=== PATIENT | female | born 1995 | race Caucasian/White ===

== ENCOUNTER 2019-05-18 12:15 | Emergency (ER) | payer BC, MEDICAID, SELFPAY ==
[2019-05-18 12:28] VITALS: BP 120/73; PULSE 76; RESP 18; TEMP 36.6; O2SAT 98; BMI 32.3
--- NOTE | 2019-05-18 13:03 | ECG_ITS ---
Measurements Intervals [place] Rate: 70 P: 23 [place]: 152 QRS: 15 QRSD: 94 T: 20 QT: 366 QTc: 396 SINUS RHYTHM No previous ECG available for comparison Electronically Signed On 05-18-2019 22:19:27 TEACHING PASTOR by Real Langley M.D. [email or web address]
[2019-05-18 13:35] LABS: Add Urine Microscopic? NO
[2019-05-18 13:47] LABS: Basophils % 0.3 %; Eosinophils # 0.1 10^3/uL (0.0-0.8); Eosinophils % 0.4 %; Hematocrit 39.5 % (37.0-47.0); Hemoglobin 13.5 g/dL (11.5-15.3); Lymphocytes # 1.4 10^3/uL (0.8-4.8); Lymphocytes % 11.8 %; Mean Corpuscular HGB Conc 34.2 g/dL (30.0-36.0); Mean Corpuscular Hemoglobin 31.5 pg (28.0-34.0); Mean Corpuscular Volume 92.1 fL (81-99); Mean Platelet Volume 8.9 fL (7.4-10.4); Monocytes # 0.5 10^3/uL (0.2-0.9); Monocytes % 4.4 %; Neutrophils # 9.9 10^3/uL (1.8-7.7); Neutrophils % 82.8 %; Nucleated Red Blood Cells % 0 %; Platelet Count 280 10^3/cmm (130-400); Red Blood Count 4.29 10^6/uL (4.1-5.3)
[2019-05-18 13:55] LABS: Bilirubin Urine Neg (NEGATIVE); Blood Urine Neg (Negative); Glucose Urine UA Norm (Normal); Ketones Urine Negative (Negative); Leukocyte Esterase Urine Negative (Negative); Nitrate Urine Negative (Negative); Protein Urine Neg (Negative); Urine Appearance Clear (CLEAR); Urine Color Yellow (Yellow); Urobilinogen Urine 1 mg/dL (Negative)
[2019-05-18 14:09] LABS: Alanine Aminotransferase 79 U/L (0-33); Albumin Level 4.4 g/dL (3.5-5.2); Alkaline Phosphatase 170 IU/L (35-105); Anion Gap 14.6 (5-19); Aspartate Amino Transferase 265 U/L (0-32); Blood Urea Nitrogen 11 mg/dL (6-20); Calcium 9.8 mg/dL (8.5-10.5); Carbon Dioxide 26 mmol/L (22-29); Chloride 103 mmol/L (98-107); Globulin 3.5 g/dL (1.3-4.6); Glucose 112 mg/dL (65-115); Potassium 3.6 mmol/L (3.5-5.1); Sodium 140 mmol/L (136-145); Total Bilirubin 0.6 mg/dL (0.15-1.2); Total Protein 7.9 g/dL (6.6-8.7)
--- NOTE | 2019-05-18 14:11 | W.ED.ABDPA2 ---
HPI - Abdominal Pain General: Chief Complaint: Abdominal Pain Stated Complaint: chest/back pain Time Seen by Provider: 05/18/19 14:11 Source: patient Mode of arrival: ambulatory Limitations: no limitations History of Present Illness: HPI narrative: Patient with presents with episodes of abdominal pain radiating to her back on and off for the last month. Patient denies fever and reports some mild nausea. Patient appears well. Patient appears in no acute distress. Review of Systems General: Reports: 10 or more systems reviewed and unremarkable except in HPI and below GI: Reports: abdominal pain PFSH ED PFSH: Statuses (acute, chronic, etc) shown below reflect problem list status as previously entered and may not be historically accurate Social History Smoking and tobacco status: never smoked Physical Exam Const: COMMON NORMALS: no apparent distress and oriented x3 GENERAL APPEARANCE: cooperative HENMT: COMMON NORMALS: normocephalic, external ears normal, EAC's normal, TM's normal bilaterally and external nose normal HEAD & SCALP: normal to inspection and normocephalic FACE & SINUS: normal facial exam NOSE: external nose normal GENERAL EAR: hearing not grossly impaired EXTERNAL EAR: Yes external ears normal EXTERNAL AUDITORY CANAL: EAC's normal TYMPANIC MEMBRANE: TM's normal bilaterally MOUTH: oral and palatal mucosa normal THROAT: posterior oropharynx normal Eye: COMMON NORMALS: PERRL and EOMs intact bilaterally PUPIL: Yes PERRL Neck/C-Spine: COMMON NORMALS: full ROM and no lymphadenopathy Lymph: LYMPHATIC: no lymphedema noted Chest: COMMONS NORMALS: inspection of chest normal and palpation of chest normal Resp: COMMON NORMALS: normal respiratory effort and clear to auscultation bilaterally AUSCULTATION: clear to auscultation bilaterally Cardio: COMMON NORMALS: regular rate and regular rhythm RATE: regular rate RHYTHM: regular rhythm GI: PALPATION: Yes tender (moderate epigastric) : COMMON NORMALS: Yes no CVA tenderness BLADDER/KIDNEY EXAM: Yes no CVA tenderness Back/Pelvis: COMMON NORMALS: no CVA tenderness and thoracic and lumbar spine normal to inspection Extremity: COMMON NORMALS: normal to inspection GENERAL: No edema Neuro: COMMON NORMALS: oriented x3, moves all extremities and no focal motor deficits Psych: COMMON NORMALS: mental status grossly normal and cooperative Skin: COMMON NORMALS: no rashes or lesions noted GENERAL SKIN EXAM: no rashes or lesions noted Course Vital Signs: Vital signs: Vital Signs Temperature 97.8 F 05/18/19 12:28 Pulse Rate 76 05/18/19 12:28 Respiratory Rate 18 05/18/19 12:28 Blood Pressure 120/73 05/18/19 12:28 Pulse Oximetry 98 05/18/19 12:28 MDM - Abdominal Pain MDM Narrative: Medical decision making narrative: Patient comes in today with complaints of epigastric pain radiating to her back for one month. On exam patient has tenderness to the epigastric region of her abdomen. Bowel sounds are present. Abdomen soft. Vital signs are stable without fever. Differential diagnosis includes gastritis, gastroenteritis, cholecystitis, pancreatitis, cholelithiasis, renal colic. Laboratory values noted some slight elevation in her liver enzymes. And a mild leukocytosis at 12,000. Patient was then and ultrasound with the gallbladder and noted gallstones without acute obstruction, or significant inflammation. Patient was given a dose of and a GI cocktail with some improvement in pain. Patient will be placed on dicyclomine and ondansetron for her pain and discomfort. Encourage patient to drink plenty of fluids and stay pretty much on a clear liquid diet until pain is improved. Then increase pain diet to a light diet without high-fat foods. Patient was recommended to return to the ER for uncontrolled pain or high fever. Case management will be contacted for patient to follow-up with surgery for gallbladder removal. Patient was strongly recommended to return to the ER for worsening signs and symptoms and reported understanding. It was noted that lipase was elevated which might warranted further evaluation with a CT scan but patient did have significant relief after use of . Patient had already been discharged before lab was received. Lab Data: Labs: Lab Results 05/18/19 05/18/19 05/18/19 Range/Units 13:23 13:33 13:33 WBC 12.0 H (4.0-10.0) 10^3/ uL RBC 4.29 (4.1-5.3) 10^6/u L Hgb 13.5 (11.5-15.3) g/dL Hct 39.5 (37.0-47.0) % MCV 92.1 (81-99) fL MCH 31.5 (28.0-34.0) pg MCHC 34.2 (30.0-36.0) g/dL RDW 12.0 L (12.1-15.1) % Plt Count 280 (130-400) 10^3/c mm MPV 8.9 (7.4-10.4) fL Neut % (Auto) 82.8 % Lymph % (Auto) 11.8 % [place] % (Auto) 4.4 % Eos % (Auto) 0.4 % Baso % (Auto) 0.3 % Neut # (Auto) 9.9 H (1.8-7.7) 10^3/u L Lymph # (Auto) 1.4 (0.8-4.8) 10^3/u L [place] # (Auto) 0.5 (0.2-0.9) 10^3/u L Eos # (Auto) 0.1 (0.0-0.8) 10^3/u L Baso # (Auto) 0.0 (0.0-0.1) 10^3/u L Nucleated RBC % (a uto) 0 % Nucleated RBCs # 0.0 /100WBC Sodium 140 (136-145) mmol/L Potassium 3.6 (3.5-5.1) mmol/L Chloride 103 (98-107) mmol/L Carbon Dioxide 26 (22-29) mmol/L Anion Gap 14.6 (5-19) BUN 11 (6-20) mg/dL Creatinine 0.6 (0.5-0.9) mg/dL GFR Calculation 125.0 (90-130) mL/min Glucose 112 (65-115) mg/dL Calcium 9.8 (8.5-10.5) mg/dL Total Bilirubin 0.6 (0.15-1.2) mg/dL AST 265 H (0-32) U/L ALT 79 H (0-33) U/L Alkaline Phosphata se 170 H (35-105) IU/L Total Protein 7.9 (6.6-8.7) g/dL Albumin 4.4 (3.5-5.2) g/dL Globulin 3.5 (1.3-4.6) g/dL Lipase 3604 H (13-60) U/L HCG, Qual (Negative) Urine Color Yellow (Yellow) Urine Appearance Clear (CLEAR) Urine pH 6.0 (5-7) Ur Specific Gravit y 1.020 (1.005-1.030) Urine Protein Neg (Negative) Urine Glucose (UA) Norm (Normal) Urine Ketones Negative (Negative) Urine Occult Blood Neg (Negative) Urine Nitrate Negative (Negative) Urine Bilirubin Neg (NEGATIVE) Urine Urobilinogen 1 H (Negative) mg/dL Ur Leukocyte Adelaide ase Negative (Negative) 05/18/19 Range/Units 13:33 WBC (4.0-10.0) 10^3/ uL RBC (4.1-5.3) 10^6/u L Hgb (11.5-15.3) g/dL Hct (37.0-47.0) % MCV (81-99) fL MCH (28.0-34.0) pg MCHC (30.0-36.0) g/dL RDW (12.1-15.1) % Plt Count (130-400) 10^3/c mm MPV (7.4-10.4) fL Neut % (Auto) % Lymph % (Auto) % [place] % (Auto) % Eos % (Auto) % Baso % (Auto) % Neut # (Auto) (1.8-7.7) 10^3/u L Lymph # (Auto) (0.8-4.8) 10^3/u L [place] # (Auto) (0.2-0.9) 10^3/u L Eos # (Auto) (0.0-0.8) 10^3/u L Baso # (Auto) (0.0-0.1) 10^3/u L Nucleated RBC % (a uto) % Nucleated RBCs # /100WBC Sodium (136-145) mmol/L Potassium (3.5-5.1) mmol/L Chloride (98-107) mmol/L Carbon Dioxide (22-29) mmol/L Anion Gap (5-19) BUN (6-20) mg/dL Creatinine (0.5-0.9) mg/dL GFR Calculation (90-130) mL/min Glucose (65-115) mg/dL Calcium (8.5-10.5) mg/dL Total Bilirubin (0.15-1.2) mg/dL AST (0-32) U/L ALT (0-33) U/L Alkaline Phosphata se (35-105) IU/L Total Protein (6.6-8.7) g/dL Albumin (3.5-5.2) g/dL Globulin (1.3-4.6) g/dL Lipase (13-60) U/L HCG, Qual Negative (Negative) Urine Color (Yellow) Urine Appearance (CLEAR) Urine pH (5-7) Ur Specific Gravit y (1.005-1.030) Urine Protein (Negative) Urine Glucose (UA) (Normal) Urine Ketones (Negative) Urine Occult Blood (Negative) Urine Nitrate (Negative) Urine Bilirubin (NEGATIVE) Urine Urobilinogen (Negative) mg/dL Ur Leukocyte [place] ase (Negative) Discharge Plan Discharge Patient Disposition: Home, Self-Care Clinical Impression: Cholelithiases Qualifiers: Cholelithiasis location: gallbladder Cholecystitis presence: with cholecystitis Cholecystitis acuity: acute Biliary obstruction: without biliary obstruction Qualified Code(s): K80.00 - Calculus of gallbladder with acute cholecystitis without obstruction Condition: Stable Prescriptions: New dicyclomine 20 mg tablet 20 mg PO TID PRN (Reason: abdominal pain) Qty: 30 RF: 0 ondansetron HCl 4 mg tablet 4 mg PO Q8H PRN (Reason: nausea and vomiting) Qty: 10 RF: 0 Discharge Orders: Discharge Order (Routine); Ordered 05/18/19 Ordered By: Manolo Parr Referrals: George Abarca MD [Family Provider] - Discharge Diet: Low Fat Discharge Activity: Resume usual activity Patient Instructions: Cholelithiasis, Biliary Colic (ED) Activity Restrictions/Additional Instructions: Home and rest Drink plenty of fluids Start with a clear liquid diet until pain improves Then increase to a light diet, avoid foods high in fat as this will stimulate gallbladder causing increase pain and discomfort Use medications as directed Follow-up with surgeon to discuss treatment and removal of gallbladder Return to ER for uncontrolled pain or high fever Discharge Date/Time: 05/18/19 15:34 Coding Level of Care Code ED Irrigation Service Technician for Chg Fwd Exam Problem Focused
--- NOTE | 2019-05-18 14:19 | US_ITS ---
WS: [id number] Gallbladder ultrasound, 05/18/2019 Clinical Data: elevated liver enzymes, epigastric abd pain, back pain Comparison: None. Findings: The gallbladder shows several gallstones. The wall measures 3.4 mm with no pericholecystic fluid. The common bile duct is 2.9 mm and there are no intrahepatic ductal abnormalities. Liver shows no cysts, masses or dilated intrahepatic ducts. The pancreas is not obscured by overlying bowel gas and no cyst, pseudocyst, or evidence of pancreati tis is noted. Right kidney measures 4.88 x 5.90 x 11.0 cm and no cyst, masses or hydronephrosis can be seen. The aorta and inferior vena cava show no vascular abnormalities. US/US gall bladder [id number] Impression: 1. Cholelithiasis. 2. Dilated gallbladder wall which can be seen with acute and/or chronic cholecy stitis.
[2019-05-18 14:26] LABS: HCG, Serum Qual Negative (Negative)
[2019-05-18 15:26] LABS: Lipase 3604 U/L (13-60)
[2019-05-18 15:33] VITALS: BP 118/65; PULSE 72; RESP 18; O2SAT 98
--- NOTE | 2019-05-21 14:23 | DCPLANNER ---
renewable energy project manager had message to schedule a follow up appointment for patient with [facility]. renewable energy project manager called [facility], spoke with Ebony, a follow up appointment is scheduled for Wednesday, May 22, 2019 at 2:[address] Boothe. Patient is aware of appointment.
--- NOTE | 2019-06-01 15:39 | DCPLANNER ---
Patient did attend appointment scheduled for 05.22.19 with [facility].
== END 2019-05-18 15:34 | disposition home or self-care (01) ==
PROVIDERS: Emergency Provider Nurse Practitioner Family; Family Provider Family Medicine
DX: K80.00 Calculus of gallbladder with acute cholecystitis without obstruction (principal)
CPT/HCPCS: 36415; 76705; 80053; 81003; 83690; 84703; 85025; 93005; 99283

== ENCOUNTER 2019-07-10 11:44 | Emergency (ER) | payer BC, MEDICAID, SELFPAY ==
[2019-07-10 11:51] VITALS: BP 108/64; PULSE 80; RESP 17; TEMP 36.8; O2SAT 98; BMI 34.9
--- NOTE | 2019-07-10 11:57 | US_ITS ---
WS: [id number] RIGHT UPPER QUADRANT ULTRASOUND HISTORY: abd pain COMPARISON: 05/18/2019 Liver: 11.3 cm in length. Normal size and echogenicity with no intrahepatic dilatation. No mass. Gallbladder: Normally distended gallbladder with cholelithiasis. No gallbladder wall thickening. No p ericholecystic fluid. CBD: 0.6 cm Pancreas: Normal size and echogenicity. Right kidney: 10.3 cm in length. Normal echogenicity with no mass or hydronephrosis. Aorta and IVC: Unremarkable. No ascites. US/US gall bladder [id number] IMPRESSION: 1. Cholelithiasis without evidence for acute cholecystitis. 2. Common bile duct is top normal size.
--- NOTE | 2019-07-10 11:58 | W.ED.ABDPA2 ---
HPI - Abdominal Pain General: Chief Complaint: Abdominal Pain Stated Complaint: ABD PAIN Time Seen by Provider: 07/10/19 11:52 Source: patient Mode of arrival: ambulatory Limitations: no limitations History of Present Illness: HPI narrative: 23-year-old female whose had right upper quadrant pain for last 2 days. She has a history gallstones and was scheduled to have her gallbladder taken out on June 24 but she canceled that she stated her pain has seem to be better she states that her pain is now a 6 out of 10 and is gotten worse. She denies any fevers. She has had some nausea no vomiting. MD elicited complaint: abdominal pain Onset (ago): day(s) Location: RUQ Severity: moderate Radiation: none Migration to: no migration Exacerbating factors: eating Relieving factors: nothing Associated Symptoms: Denies chills, diarrhea, dysuria, fever(s), nausea and vomiting Related Data: Date of Last Menstrual Period: 06/14/19 Review of Systems Const: Denies: fever, chills, body aches or change in appetite Eyes: Denies: blurry vision or eye discomfort ENMT: Denies: throat pain or dental pain Card: Denies: chest pain Resp: Denies: shortness of breath GI: Reports: abdominal pain; Denies: nausea, vomiting or diarrhea : Denies: painful urination Musc: Denies: neck pain or back pain Skin/Breast: Denies: rash Neuro: Denies: headache Psych: Denies: depression Cheo/Lymph: Denies: easy bruising All/Imm: Denies: hives PFSH ED PFSH: Social History Smoking and tobacco status: never smoked Alcohol intake: never Lives independently: Yes Household members: children Marital status: Single Current occupational status: employed History of recent travel: No Female Reproductive History: Date of last menstrual period: 06/14/19 Physical Exam Const: COMMON NORMALS: no apparent distress, oriented x3 and healthy appearing HENMT: COMMON NORMALS: normocephalic and head/scalp atraumatic HEAD & SCALP: normocephalic and atraumatic Eye: COMMON NORMALS: PERRL and EOMs intact bilaterally PUPIL: Yes PERRL Neck/C-Spine: COMMON NORMALS: full ROM and supple Chest: COMMONS NORMALS: inspection of chest normal and palpation of chest normal Resp: COMMON NORMALS: normal respiratory effort, no retractions, no use of accessory muscles and clear to auscultation bilaterally AUSCULTATION: clear to auscultation bilaterally Cardio: COMMON NORMALS: regular rate, regular rhythm and no murmurs RATE: regular rate RHYTHM: regular rhythm GI: COMMON NORMALS: normal to inspection, nondistended, normoactive bowel sounds, soft to palpation and no masses PALPATION: Yes soft and Yes tender Details: RUQ Extremity: COMMON NORMALS: normal to inspection and full ROM Neuro: COMMON NORMALS: oriented x3, moves all extremities and no focal motor deficits Psych: COMMON NORMALS: mental status grossly normal, thought process normal and cooperative THOUGHT PROCESS: normal thought process Skin: COMMON NORMALS: no rashes or lesions noted and no wounds GENERAL SKIN EXAM: no rashes or lesions noted Course Vital Signs: Vital signs: Vital Signs Temperature 98.3 F 07/10/19 11:51 Pulse Rate 80 07/10/19 11:51 Respiratory Rate 18 07/10/19 12:19 Blood Pressure 108/64 07/10/19 11:51 Pulse Oximetry 96 07/10/19 12:19 MDM - Abdominal Pain MDM Narrative: Medical decision making narrative: Patient presents here with abdominal pain likely from cholelithiasis. Patient has no signs of cholecystitis. We will try to get patient surgery rescheduled. Will write her [place] in the meantime. Patient's exam is now benign and her pain is much improved. She is return if worsening. Lab Data: Labs: Lab Results 07/10/19 07/10/19 07/10/19 Range/Units 12:06 12:06 12:23 WBC 9.0 (4.0-10.0) 10^3/ uL RBC 4.14 (4.1-5.3) 10^6/u L Hgb 12.9 (11.5-15.3) g/dL Hct 38.4 (37.0-47.0) % MCV 92.8 (81-99) fL MCH 31.2 (28.0-34.0) pg MCHC 33.6 (30.0-36.0) g/dL RDW 12.0 L (12.1-15.1) % Plt Count 275 (130-400) 10^3/c mm MPV 8.8 (7.4-10.4) fL Neut % (Auto) 73.4 % Lymph % (Auto) 19.1 % [place] % (Auto) 5.1 % Eos % (Auto) 1.7 % Baso % (Auto) 0.4 % Neut # (Auto) 6.6 (1.8-7.7) 10^3/u L Lymph # (Auto) 1.7 (0.8-4.8) 10^3/u L [place] # (Auto) 0.5 (0.2-0.9) 10^3/u L Eos # (Auto) 0.2 (0.0-0.8) 10^3/u L Baso # (Auto) 0.0 (0.0-0.1) 10^3/u L Nucleated RBC % (a uto) 0 % Nucleated RBCs # 0.0 /100WBC Sodium 139 (136-145) mmol/L Potassium 3.7 (3.5-5.1) mmol/L Chloride 102 (98-107) mmol/L Carbon Dioxide 26 (22-29) mmol/L Anion Gap 14.7 (5-19) BUN 9 (6-20) mg/dL Creatinine 0.7 (0.5-0.9) mg/dL GFR Calculation 104.6 (90-130) mL/min Glucose 101 (65-115) mg/dL Calculated Osmolal ity 284 L (285-295) mOsm/k g Calcium 9.3 (8.5-10.5) mg/dL Total Bilirubin 1.0 (0.15-1.2) mg/dL AST 235 H (0-32) U/L ALT 297 H (0-33) U/L Alkaline Phosphata se 315 H (35-105) IU/L Total Protein 7.0 (6.6-8.7) g/dL Albumin 4.2 (3.5-5.2) g/dL Globulin 2.8 (1.3-4.6) g/dL Lipase 57 (13-60) U/L HCG, Qual Negative (Negative) Urine Color (Yellow) Urine Appearance (CLEAR) Urine pH (5-7) Ur Specific Gravit y (1.005-1.030) Urine Protein (Negative) Urine Glucose (UA) (Normal) Urine Ketones (Negative) Urine Blood (Negative) Urine Nitrate (Negative) Urine Bilirubin (NEGATIVE) Urine Urobilinogen (Negative) mg/dL Ur Leukocyte [place] ase (Negative) 07/10/19 Range/Units 12:23 WBC (4.0-10.0) 10^3/ uL RBC (4.1-5.3) 10^6/u L Hgb (11.5-15.3) g/dL Hct (37.0-47.0) % MCV (81-99) fL MCH (28.0-34.0) pg MCHC (30.0-36.0) g/dL RDW (12.1-15.1) % Plt Count (130-400) 10^3/c mm MPV (7.4-10.4) fL Neut % (Auto) % Lymph % (Auto) % [place] % (Auto) % Eos % (Auto) % Baso % (Auto) % Neut # (Auto) (1.8-7.7) 10^3/u L Lymph # (Auto) (0.8-4.8) 10^3/u L [place] # (Auto) (0.2-0.9) 10^3/u L Eos # (Auto) (0.0-0.8) 10^3/u L Baso # (Auto) (0.0-0.1) 10^3/u L Nucleated RBC % (a uto) % Nucleated RBCs # /100WBC Sodium (136-145) mmol/L Potassium (3.5-5.1) mmol/L Chloride (98-107) mmol/L Carbon Dioxide (22-29) mmol/L Anion Gap (5-19) BUN (6-20) mg/dL Creatinine (0.5-0.9) mg/dL GFR Calculation (90-130) mL/min Glucose (65-115) mg/dL Calculated Osmolal ity (285-295) mOsm/k g Calcium (8.5-10.5) mg/dL Total Bilirubin (0.15-1.2) mg/dL AST (0-32) U/L ALT (0-33) U/L Alkaline Phosphata se (35-105) IU/L Total Protein (6.6-8.7) g/dL Albumin (3.5-5.2) g/dL Globulin (1.3-4.6) g/dL Lipase (13-60) U/L HCG, Qual (Negative) Urine Color Yellow (Yellow) Urine Appearance Clear (CLEAR) Urine pH 6 (5-7) Ur Specific Gravit y 1.020 (1.005-1.030) Urine Protein Neg (Negative) Urine Glucose (UA) Norm (Normal) Urine Ketones Negative (Negative) Urine Blood Neg (Negative) Urine Nitrate Negative (Negative) Urine Bilirubin 1+ H (NEGATIVE) Urine Urobilinogen 4 H (Negative) mg/dL Ur Leukocyte Adelaide ase Negative (Negative) Imaging Data ^: US: Radiologist's impression: [facility] [place] [address] Ultrasound Report Signed Patient: Marisol Anderson Unit #: [id number] : [id number] Age/Sex: 23 / F ADM Date: 07/10/19 Loc: ER Room/Bed: Attending Dr: Ordering Provider/Ordering MD: Cee Bone MD Date of Service: 07/10/19 Procedure(s): US gall bladder [id number] Accession Number(s): [id number] Report Number: [id number] WS: [id number] RIGHT UPPER QUADRANT ULTRASOUND HISTORY: abd pain COMPARISON: 05/18/2019 Liver: 11.3 cm in length. Normal size and echogenicity with no intrahepatic dilatation. No mass. Gallbladder: Normally distended gallbladder with cholelithiasis. No gallbladder wall thickening. No pericholecystic fluid. CBD: 0.6 cm Pancreas: Normal size and echogenicity. Right kidney: 10.3 cm in length. Normal echogenicity with no mass or hydronephrosis. Aorta and IVC: Unremarkable. No ascites. US/US gall bladder [id number] IMPRESSION: 1. Cholelithiasis without evidence for acute cholecystitis. 2. Common bile duct is top normal size. Discharge Plan Discharge Patient Disposition: Home, Self-Care Clinical Impression: Abdominal pain Qualifiers: Abdominal location: right upper quadrant Qualified Code(s): R10.11 - Right upper quadrant pain Cholelithiasis Qualifiers: Cholelithiasis location: gallbladder Cholecystitis presence: without cholecystitis Biliary obstruction: without biliary obstruction Qualified Code(s): K80.20 - Calculus of gallbladder without cholecystitis without obstruction Condition: Stable Prescriptions: [place] 5-325 mg tablet 1 tab PO Q6H PRN (Reason: pain) Qty: 14 RF: 0 Zofran 4 mg tablet 4 mg PO QID PRN (Reason: nausea and vomiting) Qty: 14 RF: 0 No Action Prozac 10 mg Capsule 10 mg PO DAILY RF: 0 dicyclomine 20 mg tablet 20 mg PO TID PRN (Reason: abdominal pain) Qty: 30 RF: 0 ondansetron HCl 4 mg tablet 4 mg PO Q8H PRN (Reason: nausea and vomiting) Qty: 10 RF: 0 Discharge Orders: Discharge Order (Routine); Ordered 07/10/19 Ordered By: Cee Bone Referrals: George Abarca MD [Family Provider] - Mario Alberto Boothe MD [Physician] - Discharge Diet: Advance as tolerated Discharge Activity: Resume usual activity Patient Instructions: Abdominal Pain (ED) Coding Level of Care Code ED Rounder And Backer for Chg Fwd Exam Comprehensive
[2019-07-10 12:12] LABS: Basophils % 0.4 %; Eosinophils # 0.2 10^3/uL (0.0-0.8); Eosinophils % 1.7 %; Hematocrit 38.4 % (37.0-47.0); Hemoglobin 12.9 g/dL (11.5-15.3); Lymphocytes # 1.7 10^3/uL (0.8-4.8); Lymphocytes % 19.1 %; Mean Corpuscular HGB Conc 33.6 g/dL (30.0-36.0); Mean Corpuscular Hemoglobin 31.2 pg (28.0-34.0); Mean Corpuscular Volume 92.8 fL (81-99); Mean Platelet Volume 8.8 fL (7.4-10.4); Monocytes # 0.5 10^3/uL (0.2-0.9); Monocytes % 5.1 %; Neutrophils # 6.6 10^3/uL (1.8-7.7); Neutrophils % 73.4 %; Nucleated Red Blood Cells % 0 %; Platelet Count 275 10^3/cmm (130-400); Red Blood Count 4.14 10^6/uL (4.1-5.3)
[2019-07-10] MEDS: ondansetron 2 mg/ML SDV 2 mL 8 MG IVP (12:18)
[2019-07-10 12:19] VITALS: RESP 18; O2SAT 96
[2019-07-10] MEDS: morphine 4 mg/mL SDV 1 mL IVP (12:19)
[2019-07-10 12:28] LABS: Alanine Aminotransferase 297 U/L (0-33); Albumin Level 4.2 g/dL (3.5-5.2); Alkaline Phosphatase 315 IU/L (35-105); Anion Gap 14.7 (5-19); Aspartate Amino Transferase 235 U/L (0-32); Blood Urea Nitrogen 9 mg/dL (6-20); Calcium 9.3 mg/dL (8.5-10.5); Carbon Dioxide 26 mmol/L (22-29); Chloride 102 mmol/L (98-107); Globulin 2.8 g/dL (1.3-4.6); Glomerular Filtration Rate 104.6 mL/min (90-130); Glucose 101 mg/dL (65-115); Lipase 57 U/L (13-60); Osmolality Calculated 284 mOsm/kg (285-295); Potassium 3.7 mmol/L (3.5-5.1); Sodium 139 mmol/L (136-145)
[2019-07-10 12:29] LABS: Add Urine Microscopic? NO
[2019-07-10 12:34] LABS: HCG Qualitative Urine. Negative (Negative)
[2019-07-10 12:42] LABS: Bilirubin Urine 1+ (NEGATIVE); Blood Urine Neg (Negative); Glucose Urine UA Norm (Normal); Ketones Urine Negative (Negative); Leukocyte Esterase Urine Negative (Negative); Nitrate Urine Negative (Negative); Protein Urine Neg (Negative); Urine Appearance Clear (CLEAR); Urine Color Yellow (Yellow); Urobilinogen Urine 4 mg/dL (Negative); pH Urine 6 (5-7)
--- NOTE | 2019-07-10 13:16 | DCPLANNER ---
business center manager was asked to call [facility] to have surgery rescheduled for patient. business center manager spoke with Lashon, gave patients information to clinic, was told that patients information would be printed and given to Dr. Boothe to review. business center manager will call the clinic on 07.11.19 and speak with Lashon about appointment.
[2019-07-10 13:44] VITALS: BP 108/53; PULSE 78; RESP 17; O2SAT 96
--- NOTE | 2019-07-12 13:10 | DCPLANNER ---
Patient's appointment scheduled for 07.12.19 has been cancelled.
== END 2019-07-10 13:46 | disposition home or self-care (01) ==
PROVIDERS: Emergency Provider Emergency Medicine; Family Provider Family Medicine
DX: K80.20 Calculus of gallbladder without cholecystitis without obstruction (principal); R10.11 Right upper quadrant pain
CPT/HCPCS: 12345; 36415; 76705; 80053; 81003; 81025; 83690; 85025; 96374; 96375; 99282; 99283; J2270; J2405

== ENCOUNTER 2019-07-11 02:14 | Emergency (ER) | payer BC, MEDICAID, SELFPAY ==
[2019-07-11 02:18] VITALS: BP 117/76; PULSE 98; RESP 18; O2SAT 97; BMI 28.8
--- NOTE | 2019-07-11 02:22 | US_ITS ---
WS: [id number] Complete ABDOMINAL ULTRASOUND HISTORY: Abdominal Pain COMPARISON: None available. Liver: 11.2 cm in length. Liver is normal size and echogenicity with no mass or intrahepatic dilatati on. Gallbladder: Gallbladder is contracted since the prior study. Cholelithiasis. There is diffuse gallbl adder wall thickening which is new since the prior study obtained on 07/10/2019. No pericholecystic fl uid. Gallbladder wall thickness: 0.7 cm. Pancreas: Normal size and echogenicity. CBD: 0.6 cm. Common bile duct is top normal size. No increase in size since the study on 07/10/2019. V isually there may be a small amount of sludge or very tiny stone in the common bile duct. Right kidney: 9.9 cm x 5.6 cm x 4.5 cm. No mass, cortical thickening or hydronephrosis. Left kidney: 9.7 cm x 4.6 cm x 4.5 cm. No mass, cortical thickening or hydronephrosis. Spleen: Normal size and echogenicity. Abdominal aorta and IVC are within normal limits. No ascites. US/US abdomen complete* [id number] IMPRESSION: 1. Cholelithiasis. 2. Diffuse gallbladder wall thickening is new since this prior study on 020. May be due to contracted gallbladder. Early changes of acute cholecystitis should be considered. 3. Common bile duct top normal size. Tiny amount of sludge or stone in the com mon bile duct should be considered.
--- NOTE | 2019-07-11 02:29 | ED_ITS ---
HPI - Abdominal Pain General: Chief Complaint: Abdominal Pain Stated Complaint: abdominal pain Time Seen by Provider: 07/11/19 02:21 History of Present Illness: HPI narrative: Jeri is a very nice 23-year-old female who comes in complaining of abdominal pain. She states her pain began at 8 AM this morning. She states that in the past she is been told she has gallbladder disease and she needed to have her gallbladder out but as her pain got better she canceled the surgery. The patient was here in the ER earlier today and evaluated and ultimately sent home with [place] for pain. She is tried taking this but it makes her nauseated and throw up. Patient denies any fevers or chills. But she has vomited 5-6 times according to her. She states the pain is worsening and that is why she is return to the ER. Associated Symptoms: Reports nausea and vomiting; Denies chills, coffee ground emesis, constipation, GI cramping, diarrhea, dysuria, fever(s), hematochezia, hematuria, hematemesis, melena and syncope Related Data: Date of Last Menstrual Period: 06/14/19 Review of Systems General: Reports: other (negative unless marked) Const: Denies: fever, chills, body aches, fatigue, malaise or diaphoresis Eyes: Denies: change in vision or blurry vision ENMT: Denies: throat pain, painful swallowing, hoarseness, ear pain, ear discharge, Change in hearing or nasal discharge Card: Denies: chest pain, palpitations, irregular heart rhythm, syncope, pre- syncope, shortness of breath on exertion or shortness of breath when lying down Resp: Denies: shortness of breath, productive cough, non-productive cough, wheezing, coughing up blood or chest congestion GI: Reports: abdominal pain, nausea and vomiting; Denies: vomiting blood, coffee grounds in vomit, diarrhea, constipation, cramping, blood in stool or black tarry stool : Denies: flank pain, painful urination, urinary frequency, urinary urgency, decreased urine ouput, urinary incontinence or blood in urine Musc: Denies: neck pain, back pain, extremity pain, extremity swelling, joint pain, joint swelling, joint warmth or joint stiffness Skin/Breast: Denies: rash, skin tenderness or yellow skin Neuro: Denies: headache, numbness in extremities, weakness in extremities, changes in sensation, lack of coordination, difficulty walking, dizziness, vertigo or confusion Endo: Denies: excessive thirst, tired all the time, cold intolerance, excessive sweating, flushing or hot flashes Cheo/Lymph: Denies: easy bruising, easy bleeding, petechiae or enlarged lymph nodes All/Imm: Denies: hives, throat swelling, tongue swelling, facial swelling or acute wheezing PFSH ED PFSH: Medical History (Updated 07/11/19 @ 05:30 by Kristen Hernandez) Cholelithiasis Surgical History History of adenoidectomy History of tonsillectomy Family History Grandfather Diabetes Denies family history of Anesthesia complication Bleeding disorder Cancer Social History Smoking and tobacco status: never smoked Alcohol intake: never Lives independently: Yes Household members: children Marital status: Single Current occupational status: employed History of recent travel: No Female Reproductive History: Date of last menstrual period: 06/14/19 Physical Exam Const: COMMON NORMALS: no apparent distress, oriented x3, no limitations, healthy appearing and well nourished EXAM LIMITATIONS: no altered mental status GENERAL APPEARANCE: cooperative, well kempt and well developed ORIENTATION/CONSCIOUSNESS: Yes awake HENMT: COMMON NORMALS: normocephalic, head/scalp atraumatic, hearing grossly normal bilaterally, external ears normal, EAC's normal, external nose normal and moist oral mucous membranes HEAD & SCALP: normal to inspection, normocephalic and atraumatic FACE & SINUS: normal facial exam and face symmetric NOSE: external nose normal and nares normal EXTERNAL EAR: Yes external ears normal EXTERNAL AUDITORY CANAL: EAC's normal MOUTH: oral and palatal mucosa normal and tongue normal Eye: COMMON NORMALS: PERRL, EOMs intact bilaterally, conjunctivae normal and no scleral icterus GENERAL EYE: normal appearance of both eyes and normal light reflex CONJUNCTIVA: Yes conjunctivae normal SCLERA: sclerae normal CORNEA: Yes corneas normal PUPIL: Yes PERRL DIRECT OPHTHALMOSCOPY: Yes normal light reflex Neck/C-Spine: COMMON NORMALS: full ROM, no lymphadenopathy, supple, no meningeal signs and no JVD GENERAL: Yes normal visual inspection and Yes trachea midline CERVICAL SPINE: Yes cervical ROM normal Chest: COMMONS NORMALS: inspection of chest normal and palpation of chest normal Resp: COMMON NORMALS: normal respiratory effort, no retractions, no use of accessory muscles and clear to auscultation bilaterally EFFORT & INSPECTION: Yes able to speak in complete sentences AUSCULTATION: clear to auscultation bilaterally Cardio: COMMON NORMALS: no JVD, regular rate, regular rhythm, S1 normal heart sound, S2 normal heart sound, no gallops, no clicks, no murmurs and no rub JUGULAR VENOUS DISTENTION: no JVD RATE: regular rate RHYTHM: regular rhythm HEART SOUNDS: S1 normal and S2 normal GI: COMMON NORMALS: soft to palpation PALPATION: Yes soft, Yes tender Details: RUQ, No guarding and No rigid : COMMON NORMALS: Yes no CVA tenderness BLADDER/KIDNEY EXAM: Yes no CVA tenderness Back/Pelvis: COMMON NORMALS: no CVA tenderness, thoracic and lumbar spine normal to inspection, no thoracic nor lumbar tenderness and thoraco-lumbar ROM normal Extremity: COMMON NORMALS: normal to inspection, full ROM, normal capillary refill, no joint enlargement, no clubbing, cyanosis or edema and no calf tenderness Neuro: COMMON NORMALS: oriented x3, CN's II-XII intact bilaterally, moves all extremities, no focal motor deficits and no sensory deficits noted MENINGEAL SIGNS: Yes no meningeal signs Psych: COMMON NORMALS: mental status grossly normal, thought process normal, cooperative, affect normal, speech normal and activity/motor behavior normal APPEARANCE: Yes well kempt SPEECH: Yes normal speech THOUGHT PROCESS: normal thought process Skin: COMMON NORMALS: no rashes or lesions noted, skin turgor normal, no jaundice, no petechiae and no mottling GENERAL SKIN EXAM: no rashes or lesions noted and turgor normal Course Vital Signs: Vital signs: Vital Signs Pulse Rate 98 07/11/19 02:18 Respiratory Rate 16 07/11/19 04:36 Blood Pressure 117/76 07/11/19 02:18 Pulse Oximetry 99 07/11/19 03:56 MDM - Abdominal Pain MDM Narrative: Medical decision making narrative: The patient has a common bile duct stone and will need an ERCP. The gallbladder bile duct stone was seen on ultrasound. The patient uses to go to [facility] as we do not have the ability to do ERCPs here. I reviewed the case in full with Dr. Mendes, on- call for general surgery. He agrees to accept the patient in transfer. Lab Data: Attestation: I reviewed the patient's lab results. Labs: Lab Results 07/11/19 07/11/19 07/11/19 Range/Units 02:30 02:45 02:45 WBC 8.2 (4.0-10.0) 10^3/ uL RBC 4.62 (4.1-5.3) 10^6/u L Hgb 14.1 (11.5-15.3) g/dL Hct 41.9 (37.0-47.0) % MCV 90.7 (81-99) fL MCH 30.5 (28.0-34.0) pg MCHC 33.7 (30.0-36.0) g/dL RDW 11.9 L (12.1-15.1) % Plt Count 302 (130-400) 10^3/c mm MPV 9.0 (7.4-10.4) fL Neut % (Auto) 80.9 % Lymph % (Auto) 12.0 % [place] % (Auto) 5.9 % Eos % (Auto) 0.5 % Baso % (Auto) 0.5 % Neut # (Auto) 6.6 (1.8-7.7) 10^3/u L Lymph # (Auto) 1.0 (0.8-4.8) 10^3/u L [place] # (Auto) 0.5 (0.2-0.9) 10^3/u L Eos # (Auto) 0.0 (0.0-0.8) 10^3/u L Baso # (Auto) 0.0 (0.0-0.1) 10^3/u L Nucleated RBC % (a uto) 0 % Nucleated RBCs # 0.0 /100WBC PT (10.5-13.3) SECO NDS INR (0.8-1.2) APTT (23.9-36.7) SECO NDS Sodium 139 (136-145) mmol/L Potassium 4.0 (3.5-5.1) mmol/L Chloride 103 (98-107) mmol/L Carbon Dioxide 25 (22-29) mmol/L Anion Gap 15.0 (5-19) BUN 8 (6-20) mg/dL Creatinine 0.7 (0.5-0.9) mg/dL GFR Calculation 104.6 (90-130) mL/min Glucose 120 H (65-115) mg/dL Calculated Osmolal ity 285 (285-295) mOsm/k g Calcium 9.8 (8.5-10.5) mg/dL Total Bilirubin 2.0 H (0.15-1.2) mg/dL AST 1158 H (0-32) U/L ALT 678 H (0-33) U/L Alkaline Phosphata se 407 H (35-105) IU/L Total Protein 7.6 (6.6-8.7) g/dL Albumin 4.6 (3.5-5.2) g/dL Globulin 3.0 (1.3-4.6) g/dL Lipase 7039 H (13-60) U/L HCG, Qual (Negative) Urine Color Yellow (Yellow) Urine Appearance Clear (CLEAR) Urine pH 5 (5-7) Ur Specific Gravit y 1.015 (1.005-1.030) Urine Protein Neg (Negative) Urine Glucose (UA) Norm (Normal) Urine Ketones Negative (Negative) Urine Blood Neg (Negative) Urine Nitrate Negative (Negative) Urine Bilirubin 1+ H (NEGATIVE) Urine Urobilinogen 4 H (Negative) mg/dL Ur Leukocyte Adelaide ase 1+ H (Negative) Urine RBC 0-4 H (0-2) /hpf Urine WBC 15-25 H (0-5) /hpf Ur Squamous Epith Cells 25-40 H (0-5) Ur Transition Epit h Cell 0-4 /hpf Urine Bacteria 3+ H (NONE) Urine Mucus Trace H. pylori IgG Anti body (Negative) Hepatitis A IgM Ab (Nonreactive) Hep Bs Antigen (Nonreactive) Hep B Core IgM Ab (Nonreactive) Hepatitis C Antibo dy (Nonreactive) 07/11/19 07/11/19 07/11/19 Range/Units 02:45 02:45 02:45 WBC (4.0-10.0) 10^3/ uL RBC (4.1-5.3) 10^6/u L Hgb (11.5-15.3) g/dL Hct (37.0-47.0) % MCV (81-99) fL MCH (28.0-34.0) pg MCHC (30.0-36.0) g/dL RDW (12.1-15.1) % Plt Count (130-400) 10^3/c mm MPV (7.4-10.4) fL Neut % (Auto) % Lymph % (Auto) % [place] % (Auto) % Eos % (Auto) % Baso % (Auto) % Neut # (Auto) (1.8-7.7) 10^3/u L Lymph # (Auto) (0.8-4.8) 10^3/u L [place] # (Auto) (0.2-0.9) 10^3/u L Eos # (Auto) (0.0-0.8) 10^3/u L Baso # (Auto) (0.0-0.1) 10^3/u L Nucleated RBC % (a uto) % Nucleated RBCs # /100WBC PT 13.50 H (10.5-13.3) SECO NDS INR 1.00 (0.8-1.2) APTT 28.1 (23.9-36.7) SECO NDS Sodium (136-145) mmol/L Potassium (3.5-5.1) mmol/L Chloride (98-107) mmol/L Carbon Dioxide (22-29) mmol/L Anion Gap (5-19) BUN (6-20) mg/dL Creatinine (0.5-0.9) mg/dL GFR Calculation (90-130) mL/min Glucose (65-115) mg/dL Calculated Osmolal ity (285-295) mOsm/k g Calcium (8.5-10.5) mg/dL Total Bilirubin (0.15-1.2) mg/dL AST (0-32) U/L ALT (0-33) U/L Alkaline Phosphata se (35-105) IU/L Total Protein (6.6-8.7) g/dL Albumin (3.5-5.2) g/dL Globulin (1.3-4.6) g/dL Lipase (13-60) U/L HCG, Qual Negative (Negative) Urine Color (Yellow) Urine Appearance (CLEAR) Urine pH (5-7) Ur Specific Gravit y (1.005-1.030) Urine Protein (Negative) Urine Glucose (UA) (Normal) Urine Ketones (Negative) Urine Blood (Negative) Urine Nitrate (Negative) Urine Bilirubin (NEGATIVE) Urine Urobilinogen (Negative) mg/dL Ur Leukocyte [place] ase (Negative) Urine RBC (0-2) /hpf Urine WBC (0-5) /hpf Ur Squamous Epith Cells (0-5) Ur Transition Epit h Cell /hpf Urine Bacteria (NONE) Urine Mucus H. pylori IgG Anti body Negative (Negative) Hepatitis A IgM Ab (Nonreactive) Hep Bs Antigen (Nonreactive) Hep B Core IgM Ab (Nonreactive) Hepatitis C Antibo dy (Nonreactive) 07/11/19 Range/Units 02:45 WBC (4.0-10.0) 10^3/ uL RBC (4.1-5.3) 10^6/u L Hgb (11.5-15.3) g/dL Hct (37.0-47.0) % MCV (81-99) fL MCH (28.0-34.0) pg MCHC (30.0-36.0) g/dL RDW (12.1-15.1) % Plt Count (130-400) 10^3/c mm MPV (7.4-10.4) fL Neut % (Auto) % Lymph % (Auto) % [place] % (Auto) % Eos % (Auto) % Baso % (Auto) % Neut # (Auto) (1.8-7.7) 10^3/u L Lymph # (Auto) (0.8-4.8) 10^3/u L [place] # (Auto) (0.2-0.9) 10^3/u L Eos # (Auto) (0.0-0.8) 10^3/u L Baso # (Auto) (0.0-0.1) 10^3/u L Nucleated RBC % (a uto) % Nucleated RBCs # /100WBC PT (10.5-13.3) SECO NDS INR (0.8-1.2) APTT (23.9-36.7) SECO NDS Sodium (136-145) mmol/L Potassium (3.5-5.1) mmol/L Chloride (98-107) mmol/L Carbon Dioxide (22-29) mmol/L Anion Gap (5-19) BUN (6-20) mg/dL Creatinine (0.5-0.9) mg/dL GFR Calculation (90-130) mL/min Glucose (65-115) mg/dL Calculated Osmolal ity (285-295) mOsm/k g Calcium (8.5-10.5) mg/dL Total Bilirubin (0.15-1.2) mg/dL AST (0-32) U/L ALT (0-33) U/L Alkaline Phosphata se (35-105) IU/L Total Protein (6.6-8.7) g/dL Albumin (3.5-5.2) g/dL Globulin (1.3-4.6) g/dL Lipase (13-60) U/L HCG, Qual (Negative) Urine Color (Yellow) Urine Appearance (CLEAR) Urine pH (5-7) Ur Specific Gravit y (1.005-1.030) Urine Protein (Negative) Urine Glucose (UA) (Normal) Urine Ketones (Negative) Urine Blood (Negative) Urine Nitrate (Negative) Urine Bilirubin (NEGATIVE) Urine Urobilinogen (Negative) mg/dL Ur Leukocyte Adelaide ase (Negative) Urine RBC (0-2) /hpf Urine WBC (0-5) /hpf Ur Squamous Epith Cells (0-5) Ur Transition Epit h Cell /hpf Urine Bacteria (NONE) Urine Mucus H. pylori IgG Anti body (Negative) Hepatitis A IgM Ab Non-reactive (Nonreactive) Hep Bs Antigen Non-reactive (Nonreactive) Hep B Core IgM Ab Non-reactive (Nonreactive) Hepatitis C Antibo dy Non-reactive (Nonreactive) Imaging Data ^: US: Radiologist's impression: Ultrasound abdomen, technologist interpretation - gallbladder wall thickened at 0.7 cm. Common bile duct enlarged 0.9 cm with common bile duct stone seen. No pericholecystic fluid. Gallstones present within the gallbladder. CT Abd/Pel: Radiologist's impression: [facility] [address] [address] [address] Scan Report Signed Patient: Marisol Anderson Unit #: [id number] : 1995 Age/Sex: 23 / F ADM Date: 07/11/19 Loc: ER Room/Bed: Attending Dr: Ordering Provider/Ordering MD: Kristen Hernandez DO Date of Service: 07/11/19 Procedure(s): CT abdomen pelvis w con* [id number] Accession Number(s): [id number] Report Number: [id number] PROCEDURE INFORMATION: Exam: CT Abdomen And Pelvis With Contrast Exam date and time: 07/11/2019 4:00 AM Age: 23 years old Clinical indication: Abdominal pain; Generalized TECHNIQUE: Imaging protocol: Computed tomography of the abdomen and pelvis with intravenous contrast. Total DLP: 1003.77 mGy-cm Radiation optimization: All CT scans at this facility use at least one of these dose optimization techniques: automated exposure control; mA and/or kV adjustment per patient size (includes targeted exams where dose is matched to clinical indication); or iterative reconstruction. Contrast material: OMNI 300; Contrast volume: 95 ml; Contrast route: 20G; COMPARISON: US gall bladder [id number] 07/10/2019 12:33 PM FINDINGS: Lungs: The lung bases are clear. Liver: Unremarkable. Gallbladder and bile ducts: Small calcified gallstones are visible within the gallbladder. Mild to moderate gallbladder wall thickening/edema. No definite pericholecystic inflammation/fluid. The gallbladder does not appear abnormally distended at this time. No definite biliary tree dilation by CT. Pancreas: Mild presumed inflammatory changes around the pancreas, compatible with acute pancreatitis. Please correlate with clinical and laboratory evaluation. Small amount of peripancreatic/retroperitoneal fluid, most prominent adjacent to the tail of the pancreas and gastric fundus. No definite pseudocyst at this time. No pancreatic duct dilation. The pancreas appears to enhance homogeneously. Spleen: Unremarkable. Adrenals: Unremarkable. Kidneys and ureters: Unremarkable. Stomach and bowel: There are no CT findings to strongly suggest diverticulitis. Appendix: The appendix is visualized and appears normal. Intraperitoneal space: No free air, ascites, or significant bowel distention. Vasculature: No evidence for abdominal aortic aneurysm. Lymph nodes: No retroperitoneal adenopathy. Bladder: Possibly some mild diffuse urinary bladder wall thickening. While nonspecific, this could indicate evidence for cystitis. Please correlate clinically. Reproductive: The right ovary contains a 17 mm dominant follicle versus small collapsing cyst. Significance unlikely due to small size. No significant cul-de-sac fluid. Bones/joints: No significant acute finding. Soft tissues: No significant acute finding. CT/CT abdomen pelvis w con* [id number] IMPRESSION: 1. Cholelithiasis, see additional details above. 2. Findings compatible with acute pancreatitis, see above. 3. Normal appendix. 4. Possible urinary bladder wall thickening, see above. 5. The right ovary contains a 17 mm dominant follicle versus small collapsing cyst. Significance unlikely due to small size. No significant cul-de-sac fluid. 6. Other findings discussed above. Radiation Dose CTDIVOL = (mGy): DLP = 1003.77 (mGy-cm) Dictated By: Shahzad Gaitan MD Signed By: Shahzad Gaitan MD Signed Date/Time: 07/11/19446 DD/ 5 Discharge Plan Discharge Patient Disposition: Xfer Short-Term Hosp Clinical Impression: Acute gallstone pancreatitis, Acute cholecystitis Condition: Stable Referrals: George Abarca MD [Family Provider] - Coding Level of Care Code ED Supervisor Cook Room for Chg Fwd Exam Comprehensive
[2019-07-11] MEDS: sodium chloride 0.9% 1,000 ML 100 ML IV (02:50)
[2019-07-11 02:53] LABS: Basophils % 0.5 %; Eosinophils % 0.5 %; Hematocrit 41.9 % (37.0-47.0); Hemoglobin 14.1 g/dL (11.5-15.3); Mean Corpuscular HGB Conc 33.7 g/dL (30.0-36.0); Mean Corpuscular Hemoglobin 30.5 pg (28.0-34.0); Mean Corpuscular Volume 90.7 fL (81-99); Monocytes # 0.5 10^3/uL (0.2-0.9); Monocytes % 5.9 %; Neutrophils # 6.6 10^3/uL (1.8-7.7); Neutrophils % 80.9 %; Nucleated Red Blood Cells % 0 %; Platelet Count 302 10^3/cmm (130-400); Red Blood Count 4.62 10^6/uL (4.1-5.3); Red Cell Distribution Width 11.9 % (12.1-15.1); White Blood Count 8.2 10^3/uL (4.0-10.0)
[2019-07-11] MEDS: ondansetron 2 mg/ML SDV 2 mL 4 MG IVP ×2 (03:00→05:00)
--- NOTE | 2019-07-11 03:00 | PC.NURSE ---
Pt requesting to hold morphine medication due to possible upset stomach
[2019-07-11 03:10] LABS: Alanine Aminotransferase 678 U/L (0-33); Albumin Level 4.6 g/dL (3.5-5.2); Alkaline Phosphatase 407 IU/L (35-105); Blood Urea Nitrogen 8 mg/dL (6-20); Calcium 9.8 mg/dL (8.5-10.5); Carbon Dioxide 25 mmol/L (22-29); Chloride 103 mmol/L (98-107); Glomerular Filtration Rate 104.6 mL/min (90-130); Glucose 120 mg/dL (65-115); Osmolality Calculated 285 mOsm/kg (285-295); Sodium 139 mmol/L (136-145); Total Protein 7.6 g/dL (6.6-8.7)
--- NOTE | 2019-07-11 03:10 | PC.NURSE ---
pt requesting emesis bucket due to increased nausea. Pain level still 9/10. Pt still wishes to hold on morphine adm
[2019-07-11 03:17] LABS: HCG, Serum Qual Negative (Negative)
[2019-07-11] MEDS: pantoprazole 40 mg SDV 80 MG IVP (03:18)
[2019-07-11 03:40] LABS: Aspartate Amino Transferase 1158 U/L (0-32); H. Pylori IgG Antibody Negative (Negative)
[2019-07-11 03:44] LABS: Lipase 7039 U/L (13-60)
[2019-07-11 03:45] LABS: Bilirubin Urine 1+ (NEGATIVE); Blood Urine Neg (Negative); Glucose Urine UA Norm (Normal); Ketones Urine Negative (Negative); Leukocyte Esterase Urine 1+ (Negative); Nitrate Urine Negative (Negative); Protein Urine Neg (Negative); Specific Gravity, Urine 1.015 (1.005-1.030); Urine Appearance Clear (CLEAR); Urine Color Yellow (Yellow); Urobilinogen Urine 4 mg/dL (Negative); pH Urine 5 (5-7)
[2019-07-11 03:47] LABS: RBC Urine 0-4 /hpf (0-2); Squamous Epithelial Cell Urine 25-40 (0-5)
[2019-07-11 03:48] LABS: Bacteria Urine 3+; Mucus Urine TRACE; Transitional Epi Cells Urine 0-4 /hpf; WBC Urine 15-25 /hpf (0-5)
--- NOTE | 2019-07-11 03:48 | CTR_ITS ---
PROCEDURE INFORMATION: Exam: CT Abdomen And Pelvis With Contrast Exam date and time: 07/11/2019 4:00 AM Age: 23 years old Clinical indication: Abdominal pain; Generalized TECHNIQUE: Imaging protocol: Computed tomography of the abdomen and pelvis with intravenous contrast. Total DLP: 1003.77 mGy-cm Radiation optimization: All CT scans at this facility use at least one of these dose optimization techniques: automated exposure control; mA and/or kV adjustment per patient size (includes targeted exams where dose is matched to clinical indication); or iterative reconstruction. Contrast material: OMNI 300; Contrast volume: 95 ml; Contrast route: 20G; COMPARISON: US gall bladder [id number] 07/10/2019 12:33 PM FINDINGS: Lungs: The lung bases are clear. Liver: Unremarkable. Gallbladder and bile ducts: Small calcified gallstones are visible within the gallbladder. Mild to moderate gallbladder wall thickening/edema. No definite pericholecystic inflammation/fluid. The gallbladder does not appear abnormally distended at this time. No definite biliary tree dilation by CT. Pancreas: Mild presumed inflammatory changes around the pancreas, compatible with acute pancreatitis. Please correlate with clinical and laboratory evaluation. Small amount of peripancreatic/retroperitoneal fluid, most prominent adjacent to the tail of the pancreas and gastric fundus. No definite pseudocyst at this time. No pancreatic duct dilation. The pancreas appears to enhance homogeneously. Spleen: Unremarkable. Adrenals: Unremarkable. Kidneys and ureters: Unremarkable. Stomach and bowel: There are no CT findings to strongly suggest diverticulitis. Appendix: The appendix is visualized and appears normal. Intraperitoneal space: No free air, ascites, or significant bowel distention. Vasculature: No evidence for abdominal aortic aneurysm. Lymph nodes: No retroperitoneal adenopathy. Bladder: Possibly some mild diffuse urinary bladder wall thickening. While nonspecific, this could indicate evidence for cystitis. Please correlate clinically. Reproductive: The right ovary contains a 17 mm dominant follicle versus small collapsing cyst. Significance unlikely due to small size. No significant cul-de-sac fluid. Bones/joints: No significant acute finding. Soft tissues: No significant acute finding. CT/CT abdomen pelvis w con* [id number] IMPRESSION: 1. Cholelithiasis, see additional details above. 2. Findings compatible with acute pancreatitis, see above. 3. Normal appendix. 4. Possible urinary bladder wall thickening, see above. 5. The right ovary contains a 17 mm dominant follicle versus small collapsing cyst. Significance unlikely due to small size. No significant cul-de-sac fluid. 6. Other findings discussed above. Radiation Dose CTDIVOL = (mGy): DLP = 1003.77 (mGy-cm)
[2019-07-11 03:49] LABS: Add Urine Culture? No
[2019-07-11 03:56] VITALS: RESP 18; O2SAT 99
[2019-07-11] MEDS: morphine 4 mg/mL SDV 1 mL IVP (03:56)
[2019-07-11] MEDS: piperacillin-tazobactam 3.375 GM in sodium chloride 0.9% (plus) 50 ML IV (04:05)
[2019-07-11] MEDS: sodium chloride 0.9% 1,000 ML 999 ML IV (04:06)
[2019-07-11 04:07] LABS: Hepatitis A Antibody IgM. Non-Reactive (Nonreactive); Hepatitis B Core IgM Non-Reactive (Nonreactive); Hepatitis B Surface Antigen. Non-Reactive (Nonreactive); Hepatitis C Virus Antibody Non-Reactive (Nonreactive)
[2019-07-11] MEDS: iohexol 300 mg/mL 100 mL Btl IV (04:09)
[2019-07-11 04:18] LABS: Partial Thromboplastin Time 28.1 SECONDS (23.9-36.7)
[2019-07-11 04:36] VITALS: RESP 16
[2019-07-11] MEDS: HYDROmorphone 1 mg/mL INJ 1 mL IVP (04:36)
--- NOTE | 2019-07-11 06:07 | PC.NURSE ---
Report called into [facility], Marylu Colon RN
--- NOTE | 2019-07-11 06:24 | PC.NURSE ---
Pt still having episode of vomiting after movement
[2019-07-11] MEDS: LORazepam 2 mg/mL INJ 1 mL 1 MG IVP (08:04)
[2019-07-11 08:05] VITALS: BP 109/60; PULSE 70; RESP 18; O2SAT 94
--- NOTE | 2019-07-11 13:17 | DCPLANNER ---
manager global communications called [facility], spoke with Lashon, a follow up appointment is scheduled for July at 10:[address] Boothe. Clinic has called and spoken with patient about appointment scheduled.
== END 2019-07-11 08:08 | disposition short-term general hospital (02) ==
PROVIDERS: Emergency Provider Emergency Medicine; Family Provider Family Medicine
DX: K85.10 Biliary acute pancreatitis without necrosis or infection (principal); K81.0 Acute cholecystitis
CPT/HCPCS: 12345; 74177; 76700; 80053; 80074; 81001; 83690; 84703; 85025; 85610; 85730; 86677; 96360; 96361; 96365; 96374; 96375; 99283; 99284; C9113; J1170; J2060; J2270; J2405; J2543; J7030; Q9967

== ENCOUNTER → 2019-10-01 13:00 | Outpatient (BNVA) | payer BC, MEDICAID, SELFPAY | PROVIDERS: Family Provider Family Medicine; Visit Provider Nurse Practitioner Family | DX: Z11.59 Encounter for screening for other viral diseases (principal) | CPT/HCPCS: 87635 ==

== ENCOUNTER → 2019-12-24 13:36 | Outpatient (BNVA) | payer BC, MEDICAID, SELFPAY | PROVIDERS: Family Provider Family Medicine; Visit Provider Nurse Practitioner | DX: B34.9 Viral infection, unspecified; Z86.19 Personal history of other infectious and parasitic diseases | CPT/HCPCS: 87071; 87635; 87880 ==

== ENCOUNTER → 2021-01-09 18:40 | Outpatient (BNVA) | payer BC, MEDICAID, SELFPAY | PROVIDERS: Family Provider Family Medicine; Visit Provider Registered Nurse Neonatal Intensive Care | DX: Z20.822 Contact with and (suspected) exposure to COVID-19 (principal) | CPT/HCPCS: 87635 ==

== ENCOUNTER 2022-02-27 08:46 | Emergency (ER) | payer BC, MEDICAID, SELFPAY ==
[2022-02-27 08:58] VITALS: BP 117/76; PULSE 74; RESP 13; TEMP 36.9; O2SAT 97; BMI 38.3
--- NOTE | 2022-02-27 09:19 | USR_ITS ---
PROCEDURE INFORMATION: Exam: US Nonobstetric Pelvis; Complete Exam date and time: 02/27/2022 10:08 AM Age: 26 years old Clinical indication: Pelvic pain; Additional info: Pelvic pain; Mostly llq and suprapubic, assess ovaries; R/O torsion vs ovarian cyst TECHNIQUE: Imaging protocol: Transabdominal pelvic nonobstetric ultrasound. Complete exam. Real time ultrasound with image documentation. COMPARISON: CT abdomen pelvis w con* [id number] 07/11/2019 3:59 AM FINDINGS: Uterus: The uterus measures 9.0 x 4.3 x 5.0 cm. Normal size, contour and echotexture. No mass. The endometrial echo complex measures 0.7 cm. Right ovary/adnexa: The right ovary measures 2.3 x 2.6 x 1.7 cm. Arterial and venous flow are documented. No mass. Left ovary/adnexa: The left ovary measures 2.5 x 2.9 x 2.0 cm. Arterial and venous flow are documented. No mass. Intraperitoneal space: Moderate volume free fluid in the pelvis. Urinary bladder: Normal as imaged. US/US pelvic complete* [id number] IMPRESSION: Moderate volume free fluid in the pelvis. Otherwise, unremarkable pelvic ultrasound.
--- NOTE | 2022-02-27 09:22 | ED_ITS ---
HPI - Abdominal Pain General: Chief Complaint: Abdominal Pain Stated Complaint: pain in lower left abd Time Seen by Provider: 02/27/22 09:04 Source: patient Mode of arrival: ambulatory Limitations: no limitations History of Present Illness: See nursing assessment. Patient with complaints of onset of rectal/anal pain approximately 30 minutes after she awakened. She states she awakened without any pain. She reports that the pain then radiated to her left lower quadrant and suprapubic area. She states it hurts to walk or rotate her abdomen. She denies any fever vomiting diarrhea or constipation. She states she had normal bowel movement yesterday. She states she had some slight nausea earlier with onset of the pain. Past medical history includes depression and anxiety and takes Prozac for this. She states she is allergic to hydrocodone. Past surgical history includes cholecystectomy in 2020. She denies any other abdominal surgery. She denies tobacco use. She denies any dysuria or vaginal discharge. Associated Symptoms: Reports nausea; Denies chills, constipation, diarrhea, fever(s), hematochezia, melena and vomiting Related Data: Date of Last Menstrual Period: 06/14/19 Review of Systems Const: Denies: fever(s) or chills Eyes: Denies: change in vision ENMT: Denies: throat pain Card: Denies: chest pain or palpitations Resp: Denies: dyspnea or wheezing GI: Reports: abdominal pain, nausea and rectal pain; Denies: vomiting, diarrhea, constipation, rectal swelling, hematochezia or melena : Denies: flank pain, difficulty voiding or vaginal discharge Musc: Denies: neck pain or back pain Skin/Breast: Denies: rash or pruritus Neuro: Denies: headache(s) or numbness in extremities Psych: Denies: anxiety Cheo/Lymph: Denies: enlarged lymph nodes PFSH ED PFSH: Medical History (Updated 02/27/22 @ 11:08 by Trip Seo MD) Cholelithiasis Surgical History History of adenoidectomy History of tonsillectomy Family History Grandfather Diabetes Denies family history of Anesthesia complication Bleeding disorder Cancer Social History Smoking and tobacco status: never smoked Alcohol intake: never Lives independently: Yes Household members: children Marital status: Single Current occupational status: employed History of recent travel: No Female Reproductive History: Date of last menstrual period: 06/14/19 Supplemental [facility] Information: History of cholecystectomy Physical Exam Const: COMMON NORMALS: no acute distress, patient oriented x3, alert and well nourished GENERAL APPEARANCE: cooperative HENMT: COMMON NORMALS: normocephalic and atraumatic HEAD & SCALP: norm ocephalic and atraumatic Eye: COMMON NORMALS: EOMs intact bilaterally Neck/C-Spine: COMMON NORMALS: full ROM, no lymphadenopathy, supple and no JVD Lymph: LYMPHATIC: no lymphadenopathy noted Chest: COMMONS NORMALS: normal inspection of the chest and normal palpation of entire chest wall Resp: COMMON NORMALS: normal respiratory effort, No retractions, No use of accessory muscles and clear to auscultation bilaterally AUSCULTATION: clear to auscultation bilaterally Cardio: COMMON NORMALS: no JVD, regular rate, regular rhythm and Peripheral pulses 2+ throughout RATE: regular rate RHYTHM: regular rhythm PERIPHERAL PULSES: Peripheral pulses 2+ throughout GI: COMMON NORMALS: Soft to palpation PALPATION: Yes Soft to palpation OTHER: Moderate suprapubic and left lower quadrant abdominal pain. : COMMON NORMALS: Yes no CVA tenderness BLADDER/KIDNEY EXAM: Yes no CVA tenderness OTHER: Rectal exam attended with charge nurse. Rectal exam is normal. Anus is normal. No hemorrhoids. Stool soft and guaiac negative. No rectal masses or tenderness. Back/Pelvis: COMMON NORMALS: no CVA tenderness Extremity: COMMON NORMALS: normal to inspection and full ROM Neuro: COMMON NORMALS: patient oriented x3, CN's II-XII intact bilaterally, moves all extremities, no focal motor deficits and no sensory deficits noted SENSORIUM/ORIENTATION: Yes alert Psych: COMMON NORMALS: mental status grossly normal, Normal thought process present, cooperative, normal affect and speech normal SPEECH: Yes normal speech THOUGHT PROCESS: Normal thought process present Skin: COMMON NORMALS: no rashes or lesions noted GENERAL SKIN EXAM: no rashes or lesions noted Course Vital Signs: Vital signs: Vital Signs Temperature 98.4 F 02/27/22 08:58 Pulse Rate 74 02/27/22 08:58 Respiratory Rate 13 02/27/22 08:58 Blood Pressure 117/76 02/27/22 08:58 Pulse Oximetry 97 02/27/22 08:58 Oxygen Delivery Me thod 02/27/22 08:58 MDM - Abdominal Pain Medical Decision Making Lower abdominal pain, possible ovarian torsion, possible ruptured ovarian cyst, possible diverticulitis, possible kidney stone Findings by ultrasound are consistent with ruptured ovarian cyst. I instructed the patient return if she became dizzy or faint. Also instructed her to rest for the next 3 days and not be active. She agreed to return if worse. Lab Data 02/27/22 09:39 02/27/22 09:39 Labs/Radiology: Radiology Impressions Pelvis Ultrasound 02/27/22 09:19 IMPRESSION: Moderate volume free fluid in the pelvis. Otherwise, unremarkable pelvic ultrasound. Laboratory Results WBC 5.1 10^3/uL (4.0-10.0) 02/27/22 09:39 RBC 4.29 10^6/uL (4.1-5.3) 02/27/22 09:39 Hgb 13.0 g/dL (11.5-15.3) 02/27/22 09:39 Hct 37.8 % (37.0-47.0) 02/27/22 09:39 MCV 88.1 fl (81-99) 02/27/22 09:39 MCH 30.3 pg (28.0-34.0) 02/27/22 09:39 MCHC 34.4 g/dL (30.0-36.0) 02/27/22 09:39 RDW 12.3 % (12.1-15.1) 02/27/22 09:39 Plt Count 233 10^3/cmm (130-400) 02/27/22 09:39 MPV 8.8 fL (7.4-10.4) 02/27/22 09:39 Neut % (Auto) 59.1 % 02/27/22 09:39 Lymph % (Auto) 33.4 % 02/27/22 09:39 [place] % (Auto) 4.5 % 02/27/22 09:39 Eos % (Auto) 2.0 % 02/27/22 09:39 Baso % (Auto) 0.8 % 02/27/22 09:39 Neut # (Auto) 2.99 10^3/uL (1.8-7.7) 02/27/22 09:39 Lymph # (Auto) 1.7 10^3/uL (0.8-4.8) 02/27/22 09:39 [place] # (Auto) 0.2 10^3/uL (0.2-0.9) 02/27/22 09:39 Eos # (Auto) 0.1 10^3/uL (0.0-0.8) 02/27/22 09:39 Baso # (Auto) 0.0 10^3/uL (0.0-0.1) 02/27/22 09:39 Nucleated RBC % (auto) 0 % 02/27/22 09:39 Nucleated RBCs # 0.0 /100WBC 02/27/22 09:39 Sodium 138 mmol/L (136-145) 02/27/22 09:39 Potassium 3.8 mmol/L (3.5-5.1) 02/27/22 09:39 Chloride 103 mmol/L (98-107) 02/27/22 09:39 Carbon Dioxide 25 mmol/L (22-29) 02/27/22 09:39 Anion Gap 13.8 (5-19) 02/27/22 09:39 BUN 11 mg/dL (6-20) 02/27/22 09:39 Creatinine 0.6 mg/dL (0.5-0.9) 02/27/22 09:39 GFR Calculation 121.8 mL/min (90-130) 02/27/22 09:39 Glucose 95 mg/dL (65-115) 02/27/22 09:39 Calculated Osmolality 285 mOsm/kg (285-295) 02/27/22 09:39 Calcium 9.2 mg/dL (8.5-10.5) 02/27/22 09:39 Urine Color Yellow (Yellow) 02/27/22 09:52 Urine Appearance Clear (CLEAR) 02/27/22 09:52 Urine pH 7 (5-7) 02/27/22 09:52 Ur Specific [place] 1.010 (1.005-1.030) 02/27/22 09:52 Urine Protein Neg (Negative) 02/27/22 09:52 Urine Glucose (UA) Norm (Normal) 02/27/22 09:52 Urine Ketones Negative (Negative) 02/27/22 09:52 Urine Blood Neg (Negative) 02/27/22 09:52 Urine Nitrate Negative (Negative) 02/27/22 09:52 Urine Bilirubin Neg (Negative) 02/27/22 09:52 Urine Urobilinogen Norm mg/dL (Negative) 02/27/22 09:52 Ur Leukocyte Esterase Negative (Negative) 02/27/22 09:52 Urine RBC 0-4 /hpf (0-2) H 02/27/22 09:52 Urine WBC 0-4 /hpf (0-5) H 02/27/22 09:52 Ur Squamous Epith Cells 0-4 /hpf (0-5) H 02/27/22 09:52 Amorphous Sediment Not Reportable 02/27/22 09:52 Urine Bacteria 2+ /hpf (NONE) H 02/27/22 09:52 Urine Mucus 1+ /hpf 02/27/22 09:52 Urine HCG, Qual Negative (Negative) 02/27/22 09:52 Imaging Data US: Radiologist's impression: PROCEDURE INFORMATION: Exam: US Nonobstetric Pelvis; Complete Exam date and time: 02/27/2022 10:08 AM Age: 26 years old Clinical indication: Pelvic pain; Additional info: Pelvic pain; Mostly llq and suprapubic, assess ovaries; R/O torsion vs ovarian cyst TECHNIQUE: Imaging protocol: Transabdominal pelvic nonobstetric ultrasound. Complete exam. Real time ultrasound with image documentation. COMPARISON: CT abdomen pelvis w con* [id number] 07/11/2019 3:59 AM FINDINGS: Uterus: The uterus measures 9.0 x 4.3 x 5.0 cm. Normal size, contour and echotexture. No mass. The endometrial echo complex measures 0.7 cm. Right ovary/adnexa: The right ovary measures 2.3 x 2.6 x 1.7 cm. Arterial and venous flow are documented. No mass. Left ovary/adnexa: The left ovary measures 2.5 x 2.9 x 2.0 cm. Arterial and venous flow are documented. No mass. Intraperitoneal space: Moderate volume free fluid in the pelvis. Urinary bladder: Normal as imaged. US/US pelvic complete* [id number] IMPRESSION: Moderate volume free fluid in the pelvis. Otherwise, unremarkable pelvic ultrasound. ? Dictated By: Marisol Saba MD Signed By: Marisol Saba MD Signed Date/Time: 02/27/22 1059 DD/ 1008 Discharge Plan Discharge Patient Disposition: Home Clinical Impression: Ovarian cyst rupture Abdominal pain Qualifiers: Abdominal location: left lower quadrant Qualified Code(s): R10.32 - Left lower quadrant pain Condition: Stable Prescriptions: New naproxen [Naprosyn] 500 mg tablet 500 mg PO BID PRN (Reason: pain) Qty: 10 2RF Rx Instructions: prn pain tramadol 50 mg tablet 50 mg PO Q6H PRN (Reason: pain) Qty: 15 0RF ondansetron 4 mg tablet,disintegrating 4 mg PO Q6H PRN (Reason: nausea and vomiting) Qty: 10 1RF cephalexin 500 mg capsule 500 mg PO QID 5 Days Qty: 20 0RF Rx Instructions: for infection No Action montelukast [Singulair] 10 mg tablet 10 mg PO DAILY Qty: 30 0RF Discharge Orders: Discharge ED (Routine); Ordered 02/27/22 Ordered By: Trip Seo Referrals: George Abarca MD [Primary Care Provider] - Discharge Diet: Advance as tolerated Discharge Activity: Limit activity as instructed Patient Instructions: Abdominal Pain (ED), Ruptured Ovarian Cyst (ED), Opioid Safety, Pain Management Activity Restrictions/Additional Instructions: You appear to have had a ovarian cyst rupture causing her pain. You have a mild amount of bacteria in your urine. Therefore, will place you on cephalexin antibiotic for approximately 5 days. Take medication as prescribed. Rest. If you become dizzy or faint or pain dramatically increases, return emergency room for evaluation. Encourage you to rest and not be active for the next 3 days. Off work for the next 3 days. Stand Alone Forms: Work/School Release Coding Level of Care Code ED Gis Administrator for Darryl Fwd Exam Comprehensive
[2022-02-27 09:59] LABS: Basophils % 0.8 %; Eosinophils # 0.1 10^3/uL (0.0-0.8); Hematocrit 37.8 % (37.0-47.0); Lymphocytes # 1.7 10^3/uL (0.8-4.8); Lymphocytes % 33.4 %; Mean Corpuscular HGB Conc 34.4 g/dL (30.0-36.0); Mean Corpuscular Hemoglobin 30.3 pg (28.0-34.0); Mean Corpuscular Volume 88.1 fl (81-99); Mean Platelet Volume 8.8 fL (7.4-10.4); Monocytes # 0.2 10^3/uL (0.2-0.9); Monocytes % 4.5 %; Neutrophils # 2.99 10^3/uL (1.8-7.7); Neutrophils % 59.1 %; Nucleated Red Blood Cells % 0 %; Platelet Count 233 10^3/cmm (130-400); Red Blood Count 4.29 10^6/uL (4.1-5.3); Red Cell Distribution Width 12.3 % (12.1-15.1); White Blood Count 5.1 10^3/uL (4.0-10.0)
[2022-02-27 10:20] LABS: Add Urine Culture? Yes; Bacteria Urine 2+ /hpf; Bilirubin Urine Neg (Negative); Blood Urine Neg (Negative); Glucose Urine UA Norm (Normal); Ketones Urine Negative (Negative); Leukocyte Esterase Urine Negative (Negative); Mucus Urine 1+ /hpf; Nitrate Urine Negative (Negative); Protein Urine Neg (Negative); RBC Urine 0-4 /hpf (0-2); Squamous Epithelial Cell Urine 0-4 /hpf (0-5); Urine Appearance Clear (CLEAR); Urine Color Yellow (Yellow); Urobilinogen Urine Norm (Negative); WBC Urine 0-4 /hpf (0-5); pH Urine 7 (5-7)
[2022-02-27 10:28] LABS: Anion Gap 13.8 (5-19); Blood Urea Nitrogen 11 mg/dL (6-20); Calcium 9.2 mg/dL (8.5-10.5); Carbon Dioxide 25 mmol/L (22-29); Chloride 103 mmol/L (98-107); Glomerular Filtration Rate 121.8 mL/min (90-130); Glucose 95 mg/dL (65-115); Osmolality Calculated 285 mOsm/kg (285-295); Potassium 3.8 mmol/L (3.5-5.1); Sodium 138 mmol/L (136-145)
[2022-02-27 11:43] VITALS: BP 131/90; PULSE 78; RESP 16; O2SAT 97
== END 2022-02-27 11:44 | disposition home or self-care (01) ==
PROVIDERS: Emergency Provider Family Medicine; PCP Family Medicine
DX: N83.209 Unspecified ovarian cyst, unspecified side (principal)
CPT/HCPCS: 76856; 80048; 81001; 81025; 85025; 87086; 87491; 87591; 99284

== ENCOUNTER 2023-05-17 06:54 | Day surgery (SDC) | payer OTHER, MEDICAID, SELFPAY ==
--- NOTE | 2023-05-13 10:14 | ANES.PREANE2 ---
Pre-Anesthetic Assessment Height/Weight: Height 1.5 m Operation Date: 05/17/23 11:30 Proposed Procedures p Laparoscopic bilateral salpingectomy 71008,Z30.2(Bilateral) - Dago Fischer MD Familial anesthetic complications: none Social No alcohol and No tobacco Exam alert and oriented x 3 Airway Submandibular: Other Cervical ROM: within normal limits Mallampati: Class II Comments: Comments: 2 FB CV/HEM None reported Anesthetic Plan ASA status: 2 Anesthesia: General Other: would have glidescope available Medications/Allergies Home Medications Medication Instructions Recorded Confirmed Last Taken Type No Known Home Medications 12/20/22 05/09/23 Unknown History Allergies Allergy/AdvReac Type Severity Reaction Status Date / Time hydrocodone Allergy ADR-Vomitin Verified 05/13/23 09:38 g [facility] Anesthesia Medical History Cholelithiasis Surgical History History of adenoidectomy History of tonsillectomy Family History Grandfather Diabetes Denies family history of Anesthesia complication Bleeding disorder Cancer Social History Smoking and tobacco/nicotine status: never used tobacco/nicotine Second hand smoke exposure: Yes Alcohol intake: never Substance/Drug Use: never Lives independently: Yes Household members: children Marital status: Single service: No Current occupational status: employed Current occupation: [employer] Current gender identity: Female Special lebron needs: No Agree to transfusion: Yes Data Anesthesia Cardiac Studies: No Data to Display
[2023-05-13 11:29] LABS: Basophils % 0.6 %; Eosinophils # 0.1 10^3/uL (0.0-0.8); Eosinophils % 1.9 %; Hematocrit 41.3 % (36-47); Lymphocytes # 2.1 10^3/uL (0.8-4.8); Mean Corpuscular HGB Conc 34.6 g/dL (30-55); Mean Corpuscular Hemoglobin 29.9 pg (27-33); Mean Corpuscular Volume 86.2 fl (85-98); Mean Platelet Volume 9.1 fL (7.4-10.4); Monocytes # 0.3 10^3/uL (0.2-0.9); Monocytes % 4.7 %; Neutrophils # 2.83 10^3/uL (1.8-7.7); Neutrophils % 53.6 %; Nucleated Red Blood Cells % 0 %; Platelet Count 317 10^3/cmm (157-399); Red Blood Count 4.79 10^6/uL (3.85-5.65); Red Cell Distribution Width 12.1 % (12.1-15.1); White Blood Count 5.28 10^3/uL (3.29-11.43)
[2023-05-13 12:18] LABS: Alanine Aminotransferase 9 U/L (0-33); Albumin Level 4.7 g/dL (3.5-5.2); Alkaline Phosphatase 109 U/L (35-105); Anion Gap 16.9 (5-19); Aspartate Amino Transferase 18 U/L (0-32); Blood Urea Nitrogen 7 mg/dL (6-20); Carbon Dioxide 23 mmol/L (22-29); Chloride 102 mmol/L (98-107); Globulin 3.3 g/dL (1.3-4.6); Glomerular Filtration Rate 120.8 mL/min (90-130); Glucose 81 mg/dL (65-115); Osmolality Calculated 283 mOsm/kg (285-295); Potassium 3.9 mmol/L (3.5-5.1); Sodium 138 mmol/L (136-145); Total Bilirubin 0.4 mg/dL (0.15-1.2)
[2023-05-17] VITALS (12 sets, daily range): BP systolic 103–132; BP diastolic 58–85; PULSE 50–79; RESP 9–18; TEMP 36.1–36.7; O2SAT 95–100
--- NOTE | 2023-05-17 07:20 | P.ANESUD_ITS ---
Pre-Anesthetic Update Pre-Anesthetic Assessment: Date of Surgery/Procedure: 05/17/23 Preop Leonor gnosis: Desire permanent sterilization Proposed Procedure: Operation Date: 05/17/23 08:40 Proposed Procedures p Laparoscopic bilateral salpingectomy 31037,Z30.2(Bilateral) - Dago Fischer MD Any changes to Pre-Anesthetic Assessment?: No Last Intake: > 8 hrs Exam: Pre-Anes Outpt Exam: alert, oriented x 3, clear to auscultation bilaterally and regular rate & rhythm Cardiac Studies: No Data to Display
[2023-05-17 07:37] LABS: Add Urine Microscopic? NO; Charge for UA Resulting for Rev
[2023-05-17 07:43] LABS: Bilirubin Urine Neg (Negative); Blood Urine Neg (Negative); Glucose Urine UA Norm (Normal); Ketones Urine Negative (Negative); Leukocyte Esterase Urine Negative (Negative); Nitrate Urine Negative (Negative); OR HCG Qualitative Urine Negative (Negative); Protein Urine Neg (Negative); Specific Gravity, Urine 1.005 (1.005-1.030); Urine Appearance Clear (CLEAR); Urine Color Yellow (Yellow); Urobilinogen Urine Norm (Negative); pH Urine 6.5 (5-7)
[2023-05-17] MEDS: midazolam 1 mg/mL INJ 2 mL 2 MG IVP (07:46)
[2023-05-17] MEDS: scopolamine 1.5 Patch 1 PATCH TRANSDERMA (07:47)
[2023-05-17] MEDS: sodium chloride 0.9% 1,000 ML 30 ML IV (07:52)
[2023-05-17] MEDS: sodium chloride 0.9% 500 ML IV (07:53)
--- NOTE | 2023-05-17 08:43 | W.PM.OPSUD ---
Surgery/Procedure H&P Update DATE OF PROCEDURE: May 17, 2023 DATE H&P PERFORMED: 05/09/23 H&P UPDATE INFORMATION: I have reviewed H&P completed within last 30 days, I have examined patient prior to procedure and No changes to prior documentation PREOP DIAGNOSIS: Desire permanent sterilization PLANNED PROCEDURE: Operation Date: 05/17/23 08:40 Proposed Procedures p Laparoscopic bilateral salpingectomy 09403,Z30.2(Bilateral) - Dago Fischer MD
[2023-05-17] MEDS: ceFAZolin 2,000 MG in sodium chloride 0.9% (plus) 50 ML 100 MG IV (08:52)
[2023-05-17] MEDS: BUPivacaine 0.5% INJ 10 mL INJECTION (09:38)
--- NOTE | 2023-05-17 09:57 | PM.OP ---
Operative Report Date of procedure: May 17, 2023 Pre-op diagnosis: Desire permanent sterilization Post-op diagnosis: same Procedure done: Laparoscopic bilateral Specimens removed/disposition: Left and right fallopian Surgeon: Dago Fischer MD Estimated blood loss (mL): 5 IV fluids (mL): 800 Urine output (mL): 300 Findings: Normal pelvic organ Procedure: After informed consent, the patient was taken to the operating room where general anesthesia was administered. She was placed in the dorsal lithotomy position and prepped and draped in sterile fashion. Pre-Procedure Time-Out verifying the correct patient identity, correct procedure verified with consent, correct site and side, correct patient position, availability of correct implants and any special equipment or requirements was performed and acknowledge by the OR team. The patient was examined under anesthesia and found to have a normal uterus with normal adnexa. A weighted speculum was placed in the vagina, and the anterior lip of cervix was grasped with the single toothed tenaculum. A uterine manipulator was advanced into the endocervical canal and uterus. The tenaculum was removed after uterine manipulator was secured. The speculum was removed from the vagina. An intraumbilical incision was made with a scalpel. While tenting up on the abdomen, a Verres needle was admitted into the intra-abdominal cavity. A saline drop test was performed and noted to be within normal limits. Pneumoperitoneum was attained with 4 liters of carbon dioxide. The Verres needle was removed. A 5 mm Opitc view trocar and sleeve were admitted into the abdomen and laparoscopic confirmation of location was achieved. A second incision was made 3 cm above the symphysis pubis, and a 5 mm trocar sleeves were admitted into the abdomen under direct laparoscopic visualization without complication. A survey revealed normal abdominal anatomy with the exception of string adhesion to the right lower anterior abdominal wall. A 5 mm blunt probe was advanced through the second trocar sleeve, and light manipulation of ovaries and uterus to assess the posterior aspects was performed. The pelvic survey shows normal uterus, left and right adnexa. The left ovary was noted with a follicular cyst. The string adhesion was fulgurated and transected with good hemostasis with the Ligasure. The patient was placed into Trendelenburg position. The fallopian tubes were inspected bilaterally and the fimbriated ends of the fallopian tubes were visualized bilaterally. Attention was then directed to the right side. The fallopian tube and mesosalpinx were grasped and the underlying mesosalpinx was cauterized and cut using the Ligasure device. Serial cauterization and cutting was used to separate the fallopian tube from the underlying mesosalpinx until it could be amputated cutting it approximated 2 cm from the cornua. Attention was then turned to the contralateral fallopian tube, which was removed in similar fashion. Both specimens were removed through the trocar and sent to pathology. The instruments were removed. The suprapubic trocar port was removed under direct visualization insuring good hemostasis. The carbon dioxide was allowed to escape from the abdomen. The intraumbilical trocar sleeve was withdrawn under visualization with laparoscope in the sleeve to insure hemostasis. The skin incisions were closed with 3-O Monocryl subcuticular stich and Dermabond. The instruments were removed from the vagina, and excellent hemostasis was noted. The patient tolerated the procedure well, and sponge, lap and needle count were correct times two. The patient was taken to the recovery room in good condition.
[2023-05-17] MEDS: fentaNYL 50 mcg/mL INJ 2mL IVP (10:25)
[2023-05-17] MEDS: HYDROcodone-acetaminophen 5-325 mg Tablet 1 TAB PO (11:19)
== END 2023-05-17 11:40 | disposition home or self-care (01) ==
PROVIDERS: PCP Family Medicine; Visit Provider Obstetrics & Gynecology
PROC: (CPT 58661; principal; 2023-05-17 08:30)
DX: Z30.2 Encounter for sterilization (principal)
CPT/HCPCS: 58661; 80053; 81003; 84703; 85025; 86850; 86900; 88302; J0690; J1100; J1200; J2250; J2405; J2704; J2710; J3010; J3490; J7030; J7040

== ENCOUNTER 2023-06-14 10:21 | Emergency (ER) | payer OTHER, MEDICAID, SELFPAY ==
[2023-06-14 10:34] VITALS: BP 118/78; PULSE 72; RESP 18; TEMP 36.7; O2SAT 99; BMI 36.9
--- NOTE | 2023-06-14 11:01 | USCV_ITS ---
Marisol Anderson Age: 27 Gender: F : 1995 Exam Date: 06/14/2023 10:07 Ordering Phys: Cee Bone MD Technologist: CT [place] [facility] [place]ication: le pain PROCEDURES: Venous duplex imaging was performed in only the left lower extremity. In addition, the posterior tibial and peroneal trunk were evaluated. On the left side, the common femoral, superficial femoral, profunda femoral, popliteal, posterior tibial, greater saphenous veins, and the peroneal trunk were identified and interrogated in the standard fashion. These veins were found to be easily compressible with spontaneous blood flow. No evidence of insufficiency or thrombus noted. FINDINGS: normal us CONCLUSIONS No evidence of left lower extremity DVT. Curt Astorga MD (Electronically Signed) Final Date: 14 June 2023 16:48 S
== END 2023-06-14 14:57 | disposition left against medical advice (07) ==
PROVIDERS: Emergency Provider Family Medicine; PCP Family Medicine
DX: Z53.21 Procedure and treatment not carried out due to patient leaving prior to being seen by health care provider (principal)
CPT/HCPCS: 93971

== ENCOUNTER 2023-06-20 11:29 | Emergency (ER) | payer OTHER, MEDICAID, SELFPAY ==
[2023-06-20 11:46] VITALS: BP 114/82; PULSE 85; RESP 16; TEMP 36.6; O2SAT 99; BMI 36.3
--- NOTE | 2023-06-20 16:37 | W.ED.FEMALGU ---
Documented by User: Clark Gibbs DO 06/21/23 06:18 HPI - Female Genitourinary General: Chief complaint: Urogenital-Female Stated complaint: pain while urinating, back pain Time Seen by Provider: 06/20/23 16:35 Source: patient Mode of arrival: ambulatory History of Present Illness: 27-year-old female complaining of left-sided flank pain radiating to her pelvis and her left upper leg. Approximately 4 weeks ago patient had a bilateral salpingo-oophorectomy done at this facility. She has had pain that began about a week later since then. At times it radiates into her left upper leg. She was seen in an outside clinic had a slightly elevated D-dimer and advised to have ultrasound done. She tells me she did have the ultrasound done and it was negative for DVT. She is not currently on any anticoagulants. She was seen a few days ago and started on oral antibiotic for a UTI. No hematochezia melena hematemesis coffee-ground emesis. She has had some slightly very light vaginal bleeding which she describes as spotting 27-year-old female presents emergency department with complaints of left lower quadrant abdominal pain. She states that she had a bilateral salpingectomy approximately 4 and half weeks ago and states that approximately 1 week ago she started having some left lower abdominal pain. She states she was seen at [facility] and had a D-dimer that was 0.57 and she was advised to come to the emergency department to be evaluated. Patient states that she was also given a prescription for anticoagulation which she states she has not taken. Patient states that her left lower quadrant/left flank pain feels like it is radiating to her left hip and left leg. She states it is an intermittent burning type pain. She states the pain is a 3 out of 10 at present. She states that she is concerned that she might have an infection in her abdomen after her surgery. She denies fevers chills or night sweats. She denies nausea or vomiting. MD elicited complaint: dysuria and vaginal bleeding (Spotting) Associated symptoms: Reports abdominal pain and nausea; Deny short of breath, fevers/chills, rash, seizures, vaginal bleeding or weakness Treatment prior to arrival: none Patient : No Review of Systems Const: Denies: fever(s) or chills Card: Denies: chest pain Resp: Denies: dyspnea GI: Reports: abdominal pain and nausea; Denies: vomiting or diarrhea : Denies: dysuria, urinary frequency or urinary urgency Musc: Reports: back pain; Denies: neck pain Skin/Breast: Denies: rash PFS ED PFSH: Medical History Cholelithiasis Surgical History History of salpingectomy (~05/17/23) Bilateral salpingectomy performed by Dr. Fischer at [facility]. History of adenoidectomy History of tonsillectomy Family History Grandfather Diabetes Denies family history of Anesthesia complication Bleeding disorder Cancer Physical Exam Const: COMMON NORMALS: no acute distress GENERAL APPEARANCE: cooperative and comfortable ORIENTATION/CONSCIOUSNESS: Yes awake, Yes oriented to person, Yes oriented to place and Yes oriented to time HENMT: COMMON NORMALS: normocephalic, atraumatic and hearing grossly normal bilaterally HEAD & SCALP: normocephalic and atraumatic Resp: COMMON NORMALS: normal respiratory effort, No retractions, No use of accessory muscles and clear to auscultation bilaterally AUSCULTATION: clear to auscultation bilaterally Cardio: COMMON NORMALS: regular rate, regular rhythm and No murmurs present (Cardio) RATE: regular rate RHYTHM: regular rhythm GI: COMMON NORMALS: Soft to palpation and No hepatosplenomegaly present AUSCULTATION: Yes normoactive bowel sounds PALPATION: Yes Soft to palpation, No Tenderness to palpation present (GI), No Guarding due to palpation present (GI) and Yes No hepatosplenomegaly present : SPECULUM EXAM - VAGINA: No vaginal bleeding OB/EXTERNAL & SPECULUM: No vaginal bleeding Extremity: COMMON NORMALS: normal to inspection, capillary refill normal, no clubbing, cyanosis or edema, no calf tenderness and no pedal edema Neuro: SENSORIUM/ORIENTATION: Yes oriented to person, Yes oriented to place and Yes oriented to time Skin: COMMON NORMALS: no rashes or lesions noted GENERAL SKIN EXAM: no rashes or lesions noted Course Vital Signs: Vital signs: Vital Signs Temperature 97.9 F 06/20/23 11:46 Pulse Rate 86 03/11/24 19:40 Respiratory Rate 18 06/20/23 19:40 Blood Pressure 106/72 06/20/23 18:28 Pulse Oximetry 100 06/20/23 19:40 Oxygen Delivery Me thod Room Air 06/20/23 11:46 MDM - Female Medical Decision Making Care signed out to Dr. Martinez at change of shift. See final notes for diagnosis and disposition. I have discussed the patient's case with the off going physician <Dr. Gibbs > and I have assumed care of the patient. We have discussed the current lab/radiographic results that have been resulted and the pending tests. Physical exam completed and documented I did review the CBC and CMP as well as urinalysis and the CT scan results with the patient. She states she is already being treated for urinary tract infection-she is taking antibiotics that she was prescribed 2 days ago. Lab Data 06/20/23 17:06 06/20/23 17:06 Radiology Impressions Abdomen/Pelvis CT 06/20/23 16:[address]: [address] evidence of acute intra-abdominal or pelvic pathology. 2. Additional findings, as above. Laboratory Results WBC 4.46 10^3/uL (3.29-11.43) 06/20/23 17:06 RBC 4.77 10^6/uL (3.85-5.65) 06/20/23 17:06 Hgb 14.30 g/dL (11.27-16.99) 06/20/23 17:06 Hct 42.1 % (36-47) 06/20/23 17:06 MCV 88.3 fl (85-98) 06/20/23 17:06 MCH 30.0 pg (27-33) 06/20/23 17:06 MCHC 34.0 g/dL (30-55) 06/20/23 17:06 RDW 12.0 % (12.1-15.1) L 06/20/23 17:06 Plt Count 237 10^3/cmm (157-399) 06/20/23 17:06 MPV 8.9 fL (7.4-10.4) 06/20/23 17:06 Neut % (Auto) 60.1 % 06/20/23 17:06 Lymph % (Auto) 27.6 % 06/20/23 17:06 [place] % (Auto) 9.4 % 06/20/23 17:06 Eos % (Auto) 1.6 % 06/20/23 17:06 Baso % (Auto) 1.1 % 06/20/23 17:06 Neut # (Auto) 2.68 10^3/uL (1.8-7.7) 06/20/23 17:06 Lymph # (Auto) 1.2 10^3/uL (0.8-4.8) 06/20/23 17:06 [place] # (Auto) 0.4 10^3/uL (0.2-0.9) 06/20/23 17:06 Eos # (Auto) 0.1 10^3/uL (0.0-0.8) 06/20/23 17:06 Baso # (Auto) 0.1 10^3/uL (0.0-0.1) 06/20/23 17:06 Nucleated RBC % (auto) 0 % 06/20/23 17:06 Nucleated RBCs # 0.0 /100WBC 06/20/23 17:06 Sodium 137 mmol/L (136-145) 06/20/23 17:06 Potassium 4.0 mmol/L (3.5-5.1) 06/20/23 17:06 Chloride 103 mmol/L (98-107) 06/20/23 17:06 Carbon Dioxide 22 mmol/L (22-29) 06/20/23 17:06 Anion Gap 16.0 (5-19) 06/20/23 17:06 BUN 6 mg/dL (6-20) 06/20/23 17:06 Creatinine 0.6 mg/dL (0.5-0.9) 06/20/23 17:06 GFR Calculation 120.8 mL/min (90-130) 06/20/23 17:06 Glucose 90 mg/dL (65-115) 06/20/23 17:06 Calculated Osmolality 281 mOsm/kg (285-295) L 06/20/23 17:06 Calcium 9.2 mg/dL (8.5-10.5) 06/20/23 17:06 Total Bilirubin 0.4 mg/dL (0.15-1.2) 06/20/23 17:06 AST 18 U/L (0-32) 06/20/23 17:06 ALT 9 U/L (0-33) 06/20/23 17:06 Alkaline Phosphatase 104 U/L (35-105) 06/20/23 17:06 Total Protein 7.7 g/dL (6.6-8.7) 06/20/23 17:06 Albumin 4.2 g/dL (3.5-5.2) 06/20/23 17:06 Globulin 3.5 g/dL (1.3-4.6) 06/20/23 17:06 Urine Color Straw (Yellow) 06/20/23 16:46 Urine Appearance Clear (CLEAR) 06/20/23 16:46 Urine pH 6 (5-7) 06/20/23 16:46 Ur Specific [place] 1.010 (1.005-1.030) 06/20/23 16:46 Urine Protein Neg (Negative) 06/20/23 16:46 Urine Glucose (UA) Norm (Normal) 06/20/23 16:46 Urine Ketones Negative (Negative) 06/20/23 16:46 Urine Blood 3+ (Negative) H 06/20/23 16:46 Urine Nitrate Negative (Negative) 06/20/23 16:46 Urine Bilirubin Neg (Negative) 06/20/23 16:46 Urine Urobilinogen Norm mg/dL (Negative) 06/20/23 16:46 Ur Leukocyte Esterase Negative (Negative) 06/20/23 16:46 Urine RBC 10-15 /hpf (0-2) H 06/20/23 16:46 Urine WBC 10-15 /hpf (0-5) H 06/20/23 16:46 Ur Squamous Epith Cells 0-4 /hpf (0-5) H 06/20/23 16:46 Amorphous Sediment Not Reportable 06/20/23 16:46 Urine Bacteria Trace /hpf (NONE) 06/20/23 16:46 Discharge Plan Discharge Patient Disposition: Home Clinical Impression: Cyst of left ovary Abdominal pain Qualifiers: Abdominal location: left lower quadrant Qualified Code(s): R10.32 - Left lower quadrant pain Condition: Stable Prescriptions: New ibuprofen 800 mg tablet 800 mg PO Q8H PRN (Reason: pain) Qty: 30 0RF No Action acetaminophen 325 mg capsule 325 mg PO Q4H PRN (Reason: fever or postoperative pain) Qty: 60 0RF ibuprofen 800 mg tablet 800 mg PO TID PRN (Reason: pain) Qty: 60 0RF hydrocodone-acetaminophen 5-325 mg tablet 1 tab PO Q4H PRN (Reason: pain) Qty: 10 0RF Discharge Orders: Discharge ED (Routine); Ordered 06/20/23 Ordered By: Vijay Martinez Referrals: Ayanna Dunlap MD [Primary Care Provider] - Discharge Diet: Usual diet Discharge Activity: Resume usual activity Patient Instructions: Abdominal Pain (ED), Opioid Safety, Pain Management Activity Restrictions/Additional Instructions: Activity Restrictions/Additional Instructions: Thank you for choosing [facility] for your healthcare needs today. Please realize that you were seen in the Emergency Department and that we are providing you with an emergency medical screening exam and this may not be a complete and all inclusive of all the testing and or medical work-up that you may need to determine your ailment or severity of your illness. It is very important that you follow-up as instructed with your Primary care provider or Specialist for additional evaluation and to discuss your medical treatment plan. You may return to the Emergency Department should you have concerns or if your condition changes or worsens in any way. Coding Level of Care Code ED Security Sergeant for Chg Fwd Documented by User: Vijay Martinez MD 06/20/23 20:19 HPI - Female Genitourinary General: Chief complaint: Urogenital-Female Stated complaint: pain while urinating, back pain Time Seen by Provider: 06/20/23 16:35 History of Present Illness: 27-year-old female presents emergency department with complaints of left lower quadrant abdominal pain. She states that she had a bilateral salpingectomy approximately 4 and half weeks ago and states that approximately 1 week ago she started having some left lower abdominal pain. She states she was seen at [facility] and had a D-dimer that was 0.57 and she was advised to come to the emergency department to be evaluated. Patient states that she was also given a prescription for anticoagulation which she states she has not taken. Patient states that her left lower quadrant/left flank pain feels like it is radiating to her left hip and left leg. She states it is an intermittent burning type pain. She states the pain is a 3 out of 10 at present. She states that she is concerned that she might have an infection in her abdomen after her surgery. She denies fevers chills or night sweats. She denies nausea or vomiting. Associated symptoms: Reports abdominal pain Review of Systems General: Reports: 10 or more systems reviewed and unremarkable except in HPI and below GI: Reports: abdominal pain PFSH ED PFSH: Medical History Cholelithiasis Surgical History History of salpingectomy (~05/17/23) Bilateral salpingectomy performed by Dr. Fischer at [facility]. History of adenoidectomy History of tonsillectomy Family History Grandfather Diabetes Denies family history of Anesthesia complication Bleeding disorder Cancer Physical Exam Narrative: EXAM NARRATIVE: Constitutional: the patient appears well nourished and of normal development. Vital signs as documented. No acute distress at present. Alert and oriented-to person, place, time and situation. Head, eyes, ears, nose, mouth, throat: Normocephalic, atraumatic. Pupils-equal, round, reactive to light. No scleral icterus. Normal-appearing external ears. Normal appearing nasal turbinates, no drainage. No obvious oral lesions, posterior oropharynx without erythema or exudates. Neck: Supple, trachea is midline, no lymphadenopathy, no jugular venous distension, thyromegaly, or carotid bruits. Carotid upstrokes are brisk bilaterally. Lungs: clear to auscultation to all lung johnson. Symmetrical rise and fall of chest, no obvious signs of increased work of breathing at present. Cardiac: Regular rate and rhythm, positive S1, S2. No murmurs, rubs or gallops that I can appreciate Abdomen: Soft, mild tenderness to palpation to the left lower quadrant, normal active bowel sounds to all quadrants. No palpable masses, no organomegaly and abdominal bruits. She does have a well-healed suprapubic scar to the midline with no signs of infection. She also has a well-healed surgical scar about the umbilicus. Extremities: 2+ pulses in the upper extremities that are equal bilaterally, 2+ pulses in the lower extremities that are equal bilaterally. Non-edematous. Moves all extremities well, sensation to all extremities are noted. Skin: Warm, dry, intact. Course Vital Signs: Vital signs: Vital Signs Temperature 97.9 F 06/20/23 11:46 Pulse Rate 86 06/20/23 19:40 Respiratory Rate 18 06/20/23 19:40 Blood Pressure 106/72 06/20/23 18:28 Pulse Oximetry 100 06/20/23 19:40 Oxygen Delivery Me thod Room Air 06/20/23 11:46 MDM - Female Medical Decision Making I have discussed the patient's case with the off going physician <Dr. Gibbs > and I have assumed care of the patient. We have discussed the current lab/radiographic results that have been resulted and the pending tests. Physical exam completed and documented I did review the CBC and CMP as well as urinalysis and the CT scan results with the patient. She states she is already being treated for urinary tract infection-she is taking antibiotics that she was prescribed 2 days ago. Medical Records I reviewed the patient's medical records. Lab Data I reviewed the patient's lab results. 06/20/23 17:06 06/20/23 17:06 Radiology Impressions Abdomen/Pelvis CT 06/20/23 16:[address]: [address] evidence of acute intra-abdominal or pelvic pathology. 2. Additional findings, as above. Laboratory Results WBC 4.46 10^3/uL (3.29-11.43) 06/20/23 17:06 RBC 4.77 10^6/uL (3.85-5.65) 06/20/23 17:06 Hgb 14.30 g/dL (11.27-16.99) 06/20/23 17:06 Hct 42.1 % (36-47) 06/20/23 17:06 MCV 88.3 fl (85-98) 06/20/23 17:06 MCH 30.0 pg (27-33) 06/20/23 17: MCHC 34.0 g/dL (30-55) 06/20/23 17:06 RDW 12.0 % (12.1-15.1) L 06/20/23 17:06 Plt Count 237 10^3/cmm (157-399) 06/20/23 17:06 MPV 8.9 fL (7.4-10.4) 06/20/23 17:06 Neut % (Auto) 60.1 % 06/20/23 17:06 Lymph % (Auto) 27.6 % 06/20/23 17:06 [place] % (Auto) 9.4 % 06/20/23 17:06 Eos % (Auto) 1.6 % 06/20/23 17:06 Baso % (Auto) 1.1 % 06/20/23 17:06 Neut # (Auto) 2.68 10^3/uL (1.8-7.7) 06/20/23 17:06 Lymph # (Auto) 1.2 10^3/uL (0.8-4.8) 06/20/23 17:06 [place] # (Auto) 0.4 10^3/uL (0.2-0.9) 06/20/23 17:06 Eos # (Auto) 0.1 10^3/uL (0.0-0.8) 06/20/23 17:06 Baso # (Auto) 0.1 10^3/uL (0.0-0.1) 06/20/23 17:06 Nucleated RBC % (auto) 0 % 06/20/23 17:06 Nucleated RBCs # 0.0 /100WBC 06/20/23 17:06 Sodium 137 mmol/L (136-145) 06/20/23 17:06 Potassium 4.0 mmol/L (3.5-5.1) 06/20/23 17:06 Chloride 103 mmol/L (98-107) 06/20/23 17:06 Carbon Dioxide 22 mmol/L (22-29) 06/20/23 17:06 Anion Gap 16.0 (5-19) 06/20/23 17:06 BUN 6 mg/dL (6-20) 06/20/23 17:06 Creatinine 0.6 mg/dL (0.5-0.9) 06/20/23 17:06 GFR Calculation 120.8 mL/min (90-130) 06/20/23 17:06 Glucose 90 mg/dL (65-115) 06/20/23 17:06 Calculated Osmolality 281 mOsm/kg (285-295) L 06/20/23 17:06 Calcium 9.2 mg/dL (8.5-10.5) 06/20/23 17:06 Total Bilirubin 0.4 mg/dL (0.15-1.2) 06/20/23 17:06 AST 18 U/L (0-32) 06/20/23 17:06 ALT 9 U/L (0-33) 06/20/23 17:06 Alkaline Phosphatase 104 U/L (35-105) 06/20/23 17:06 Total Protein 7.7 g/dL (6.6-8.7) 06/20/23 17:06 Albumin 4.2 g/dL (3.5-5.2) 06/20/23 17:06 Globulin 3.5 g/dL (1.3-4.6) 06/20/23 17:06 Urine Color Straw (Yellow) 06/20/23 16:46 Urine Appearance Clear (CLEAR) 06/20/23 16:46 Urine pH 6 (5-7) 06/20/23 16:46 Ur Specific [place] 1.010 (1.005-1.030) 06/20/23 16:46 Urine Protein Neg (Negative) 06/20/23 16:46 Urine Glucose (UA) Norm (Normal) 06/20/23 16:46 Urine Ketones Negative (Negative) 06/20/23 16:46 Urine Blood 3+ (Negative) H 06/20/23 16:46 Urine Nitrate Negative (Negative) 06/20/23 16:46 Urine Bilirubin Neg (Negative) 06/20/23 16:46 Urine Urobilinogen Norm mg/dL (Negative) 06/20/23 16:46 Ur Leukocyte Esterase Negative (Negative) 06/20/23 16:46 Urine RBC 10-15 /hpf (0-2) H 06/20/23 16:46 Urine WBC 10-15 /hpf (0-5) H 06/20/23 16:46 Ur Squamous Epith Cells 0-4 /hpf (0-5) H 06/20/23 16:46 Amorphous Sediment Not Reportable 06/20/23 16:46 Urine Bacteria Trace /hpf (NONE) 06/20/23 16:46 All radiology interpretation(s) finalized by discharge Discharge Plan Discharge Patient Disposition: Home Clinical Impression: Cyst of left ovary Abdominal pain Qualifiers: Abdominal location: left lower quadrant Qualified Code(s): R10.32 - Left lower quadrant pain Condition: Stable Prescriptions: New ibuprofen 800 mg tablet 800 mg PO Q8H PRN (Reason: pain) Qty: 30 0RF No Action acetaminophen 325 mg capsule 325 mg PO Q4H PRN (Reason: fever or postoperative pain) Qty: 60 0RF ibuprofen 800 mg tablet 800 mg PO TID PRN (Reason: pain) Qty: 60 0RF hydrocodone-acetaminophen 5-325 mg tablet 1 tab PO Q4H PRN (Reason: pain) Qty: 10 0RF Discharge Orders: Discharge ED (Routine); Ordered 06/20/23 Ordered By: Vijay Martinez Referrals: Ayanna Dunlap MD [Primary Care Provider] - Discharge Diet: Usual diet Discharge Activity: Resume usual activity Patient Instructions: Abdominal Pain (ED), Opioid Safety, Pain Management Activity Restrictions/Additional Instructions: Activity Restrictions/Additional Instructions: Thank you for choosing [facility] for your healthcare needs today. Please realize that you were seen in the Emergency Department and that we are providing you with an emergency medical screening exam and this may not be a complete and all inclusive of all the testing and or medical work-up that you may need to determine your ailment or severity of your illness. It is very important that you follow-up as instructed with your Primary care provider or Specialist for additional evaluation and to discuss your medical treatment plan. You may return to the Emergency Department should you have concerns or if your condition changes or worsens in any way. Coding Level of Care Code ED Security Sergeant for Darryl Rene
--- NOTE | 2023-06-20 16:45 | CTR_ITS ---
PROCEDURE INFORMATION: Exam: CT Abdomen And Pelvis With Contrast Exam date and time: 06/20/2023 5:48 PM Age: 27 years old Clinical indication: Abdominal pain; Other: Pelvic pain; Prior surgery; Surgery date: <1 month; Surgery type: Иван salpingectomy; Additional info: Abd pain TECHNIQUE: Imaging protocol: Computed tomography of the abdomen and pelvis with contrast. Axial, coronal and sagittal reformatted images were created and reviewed. Radiation optimization: All CT scans at this facility use at least one of these dose optimization techniques: automated exposure control; mA and/or kV adjustment per patient size (includes targeted exams where dose is matched to clinical indication); or iterative reconstruction. Contrast material: OMNI 350; Contrast volume: 100 ml; Contrast route: INTRAVENOUS (IV); COMPARISON: CT abdomen pelvis w con* [id number] 07/11/2019 3:59 AM RADIATION DOSE METRICS: Total DLP (mGy-cm): 756.26 FINDINGS: Liver: Unremarkable. Gallbladder and bile ducts: Status post cholecystectomy. No biliary ductal dilatation. Pancreas: Unremarkable. Spleen: Unremarkable. Adrenal glands: Normal. No mass. Kidneys and ureters: No mass. No radiodense calculi. No hydronephrosis. Stomach and bowel: No bowel wall thickening. No obstruction. No pneumatosis. Appendix: Normal. Intraperitoneal space: No free fluid. No organized fluid collection. No free air. Vasculature: Unremarkable. No aneurysm. Lymph nodes: Small mesenteric lymph nodes, nonspecific in appearance. No pathologically enlarged lymph nodes. Urinary bladder: Unremarkable as visualized. Reproductive: Probable involuting left ovarian corpus luteal cyst. Bones/joints: No acute osseous abnormality. Soft tissues: Unremarkable. CT/CT abdomen pelvis w con* [id number]: 1[address] No CT evidence of acute intra-abdominal or pelvic pathology. 2. Additional findings, as above.
[2023-06-20 17:18] LABS: Basophils # 0.1 10^3/uL (0.0-0.1); Basophils % 1.1 %; Eosinophils # 0.1 10^3/uL (0.0-0.8); Eosinophils % 1.6 %; Hematocrit 42.1 % (36-47); Lymphocytes # 1.2 10^3/uL (0.8-4.8); Lymphocytes % 27.6 %; Mean Corpuscular Volume 88.3 fl (85-98); Mean Platelet Volume 8.9 fL (7.4-10.4); Monocytes # 0.4 10^3/uL (0.2-0.9); Monocytes % 9.4 %; Neutrophils # 2.68 10^3/uL (1.8-7.7); Neutrophils % 60.1 %; Nucleated Red Blood Cells % 0 %; Platelet Count 237 10^3/cmm (157-399); Red Blood Count 4.77 10^6/uL (3.85-5.65); White Blood Count 4.46 10^3/uL (3.29-11.43)
[2023-06-20 17:33] LABS: Add Urine Microscopic? YES; Bilirubin Urine Neg (Negative); Blood Urine 3+ (Negative); Glucose Urine UA Norm (Normal); Ketones Urine Negative (Negative); Leukocyte Esterase Urine Negative (Negative); Nitrate Urine Negative (Negative); Protein Urine Neg (Negative); Urine Appearance Clear (CLEAR); Urine Color Straw (Yellow); Urobilinogen Urine Norm (Negative); pH Urine 6 (5-7)
[2023-06-20 17:34] LABS: Add Urine Culture? Yes; Bacteria Urine TRACE /hpf; Squamous Epithelial Cell Urine 0-4 /hpf (0-5)
[2023-06-20 17:52] LABS: Alanine Aminotransferase 9 U/L (0-33); Albumin Level 4.2 g/dL (3.5-5.2); Alkaline Phosphatase 104 U/L (35-105); Aspartate Amino Transferase 18 U/L (0-32); Blood Urea Nitrogen 6 mg/dL (6-20); Calcium 9.2 mg/dL (8.5-10.5); Carbon Dioxide 22 mmol/L (22-29); Chloride 103 mmol/L (98-107); Creatinine Clr Calc Pharmacy 183.1388; Globulin 3.5 g/dL (1.3-4.6); Glomerular Filtration Rate 120.8 mL/min (90-130); Glucose 90 mg/dL (65-115); Osmolality Calculated 281 mOsm/kg (285-295); Sodium 137 mmol/L (136-145); Total Bilirubin 0.4 mg/dL (0.15-1.2); Total Protein 7.7 g/dL (6.6-8.7)
[2023-06-20] MEDS: iohexol 350 mg/mL 500 mL Btl (per mL) IV (17:59)
[2023-06-20 18:28] VITALS: BP 106/72; PULSE 77; RESP 16; O2SAT 100
[2023-06-20 19:40] VITALS: PULSE 86; RESP 18; O2SAT 100
[2023-06-20] MEDS: ketorolac 30 mg/mL INJ IVP (20:06)
== END 2023-06-20 20:23 | disposition home or self-care (01) ==
PROVIDERS: Emergency Medicine; Family Medicine; Emergency Provider Internal Medicine; PCP Family Medicine
DX: N83.202 Unspecified ovarian cyst, left side (principal); R10.32 Left lower quadrant pain
CPT/HCPCS: 74177; 80053; 81001; 85025; 87086; 96374; 99285; J1885; Q9967

== ENCOUNTER → 2023-11-24 15:30 | Outpatient (BNVA) | payer OTHER, MEDICAID, SELFPAY | PROVIDERS: PCP Family Medicine; Visit Provider Family Medicine | DX: N92.6 Irregular menstruation, unspecified (principal); R53.83 Other fatigue | CPT/HCPCS: 80053; 84403; 84443; 85025 ==